=== PATIENT | male | born 1940 | race Caucasian/White ===

== ENCOUNTER 2020-03-12 08:55 | Outpatient (REF) | payer BC, SELFPAY ==
--- NOTE | 2020-03-12 10:13 | MHC.AU.P13 ---
Adult Audiological Evaluation Date of Visit: 03/12/20 Reason for Appointment: Patient has noticed gradually increasing hearing difficulty over the last year. He reports that family members have expressed frustrations over his hearing. Does patient feel they have a hearing loss?: Yes If Yes, Which Ear?: Both Ears Has hearing been tested previously?: No Hearing Handicap Inventory HHIE SCORE: 22 Based on HHIE score, patient has: Mild to moderate perceived hearing handicap Ear History: Recent Ear Drainage: None Reported Recent Ear Pain: None Reported Recent Ear Infections: None Reported History of Ear Wax Buildup: Both Ears Previous Ear Surgery: None Reported Bothersome Tinnitus/Ringing/Noises in Ears: None Reported Ear used on the phone: Left Ear Blocked/Full Sensation in Ear(s): None Reported History of occupational noise exposure?: No History: History: Yes Branch: [employer] Otoscopy: Right Ear: Unremarkable Left Ear: Partially occluded with cerumen Tympanometry: Right Ear: Normal Middle Ear System (Type A) Left Ear: Normal Middle Ear System (Type A) Hearing Evaluation: Transducer(s) Used: Insert Earphones Method: Conventional Audiometry Stimuli Used: Pure Tones Right Ear: Description of Hearing: Mild/moderate sloping to severe sensorineural hearing loss Left Ear: Description of Hearing: Mild/moderate sloping to severe sensorineural hearing loss Speech Recognition Threshold (SRT): Method Used: Recorded Lists Stimuli Used: Spondee Words Right Ear: 45 dBHL Left Ear: 40 dBHL Word Discrimination: Method: Recorded Lists Word Lists Used: NU-6 Right Ear: 80% at 70 dBHL. Re-tested at 75 dBHL, and score improved to 96%. Left Ear: 100% at 75 dBHL Most Comfortable Level (MCL): Right Ear: 70 dBHL Left Ear: 75 dBHL QuickSIN: Tested binaurally, 6 dB SNR loss, which suggests patient's ability to hear in noise is mildly more difficult than the average listener. Recommendations: Audiological re-evaluation in one year. Trial with amplification is recommended. Patient plans to contact his insurance to inquire about hearing aid benefits. He is welcome to contact our clinic to schedule a hearing aid evaluation if he would like to pursue amplification. Diagnosis: Primary Diagnosis: H90.3 Bilateral Sensorineural Hearing Loss Services Performed: Services Performed: Comprehensive Audiological Evaluation (CPT 14944) Tympanometry (CPT 75350) Signature: Provider: Bronson Cr, CCC-A
== END 2020-03-12 08:56 | disposition home or self-care (01) ==
LOC: HO.SH 08:55
PROVIDERS: PCP Family Medicine; Referring Provider Family Medicine; Visit Provider Family Medicine
DX: H90.3 Sensorineural hearing loss, bilateral (principal)
CPT/HCPCS: 92557; 92567

== ENCOUNTER 2020-08-23 14:21 | Emergency (ER) | payer OTHER, SELFPAY ==
[2020-08-23 14:40] VITALS: BP 198/81; PULSE 81; RESP 18; TEMP 36.6; O2SAT 95; BMI 28.8
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
[2020-08-23 16:01] VITALS: BP 153/84; PULSE 69; RESP 18; TEMP 36.4; O2SAT 95
== END 2020-08-23 16:41 | disposition home or self-care (01) ==
PROVIDERS: Emergency Provider Emergency Medicine; PCP Family Medicine
DX: Z04.1 Encounter for examination and observation following transport accident (principal)
CPT/HCPCS: 99282; 99283

== ENCOUNTER 2023-06-30 02:53 | Emergency (ER) | payer BC, SELFPAY ==
[2023-06-30] VITALS (8 sets, daily range): BP systolic 122–170; BP diastolic 66–100; PULSE 66–85; RESP 12–18; TEMP 36.4–36.7; O2SAT 90–98; BMI 32.4
--- NOTE | ~2023-06-30 | CT_ITS ---
EXAMINATION: CT abdomen pelvis w IV con CLINICAL INFORMATION: Reason for Exam bilateral lower quadrant pain COMPARISON: No prior CT available for comparison. TECHNIQUE: Multidetector volumetric imaging was performed from the superior aspect of the liver through the pubic symphysis 85 mL of Omnipaque 350 injected Sagittal and coronal reformatted images were obtained on the technologist's workstation. This CT examination was performed using dose optimization techniques as appropriate, variously including the following: *Automated exposure control *Adjustment of mA and/or kV according to patient size (this includes techniques or standardized protocols for targeted exams where dose is matched to indication/reason for exam; i.e. extremities or head) *Use of iterative reconstruction technique DLP: 648 mGy-cm FINDINGS: LOWER THORAX: Included lung bases are clear. HEPATOBILIARY: No focal hepatic lesions. No biliary ductal dilatation. GALLBLADDER: Gallstone. SPLEEN: Spleen is normal in size. PANCREAS: No focal mass or ductal dilatation. STOMACH AND GASTROINTESTINAL TRACT: Stomach is grossly unremarkable. Dilated the small bowel loops proximally, partial small bowel obstruction, with a transition zone midabdomen Hardy image. There is a segment of small bowel which exhibits somewhat thickened wall, this could be due to acute inflammatory infection or neoplastic process. No CT evidence of appendicitis. There is diverticulosis without evidence of acute diverticulitis. ADRENALS: No adrenal nodules. KIDNEYS/URETERS: Simple 1.8 cm cyst middle pole left kidney Bosniak class I commonly benign no follow-up is necessary. No kidney stone or hydronephrosis. URINARY BLADDER: Partially decompressed. PELVIC VISCERA: Unremarkable PERITONEUM: There is a free fluid in the abdomen, there is no free air. LYMPH NODES: No lymphadenopathy. VASCULAR:Abdominal aorta normal in size, no aneurysm found. BONES, ABDOMINAL WALL AND SOFT TISSUES: Age-appropriate changes of the spine and skeletal system, no destructive osteolytic or osteosclerotic bone lesion found CT/CT abdomen pelvis w IV con IMPRESSION: 1. Partial SMALL BOWEL OBSTRUCTION, dilated proximal small bowel loops, transition zone midabdomen Hardy image. 2. There is a segment of small bowel which exhibits somewhat thickened wall, this could be due to acute inflammatory infection or neoplastic process. 3. Cholelithiasis.
--- NOTE | ~2023-06-30 | XR_ITS ---
EXAMINATION: XR CHEST CLINICAL INFORMATION: Shortness of breath COMPARISON: CT abdomen from 06/30/2023 TECHNIQUE: 2 views of the chest were obtained. FINDINGS: Streaky opacities of the bilateral lung bases suggesting atelectasis, left greater than right. No pneumothorax. Trachea is midline. Cardiac mediastinal silhouette is not enlarged. Aorta demonstrates atherosclerotic calcifications. No large pleural effusion. Osseous structures are intact. Soft tissues are unremarkable. XR/XR chest 2V IMPRESSION: Streaky opacities of the bilateral lung bases suggesting atelectasis, left greater than right.
--- NOTE | 2023-06-30 03:18 | PC.NURSE ---
Pt ca&ox4, no signs of distress. Pt reports lower abdm 6/10 pain with n/v. at bedside. Plan of care ongoing.
--- NOTE | 2023-06-30 04:26 | ECG_ITS ---
Test Reason : ABDOMINAL PAIN Blood Pressure : / mmHG Vent. Rate : 082 BPM Atrial Rate : 082 BPM P-R Int : 210 ms QRS Dur : 114 ms QT Int : 380 ms P-R-T Axes : 026 000 015 degrees QTc Int : 443 ms Sinus rhythm with 1st degree A-V block Low voltage QRS Right bundle branch block Abnormal ECG No previous ECGs available Referred By: Adela Newton Electronically Signed By:Osmani Vaughn
--- NOTE | 2023-06-30 04:33 | ED_ITS ---
HPI - Abdominal Pain General Chief Complaint: Abdominal Pain Stated Complaint: Abdominal Pain , Nausea Time Seen by Provider: 06/30/23 04:32 Source: patient and family Mode of arrival: ambulatory Limitations: no limitations History of Present Illness HPI narrative: Patient comes to the emergency room accompanied by his . Patient complaining of nearly 10 hours of constant bilateral lower quadrant pain, worse on the left side, with worsening episodes. Patient states that around 18:00, after eating supper, patient started having the pain. Patient vomited twice, no diarrhea. Patient denies fever chills, no URI or UTI symptoms. Patient denies previous surgical history is in the abdomen or passing kidney stones. Patient denies history of constipation. Related Data Allergies Allergy/AdvReac Type Severity Reaction Status Date / Time No Known Allergies Allergy Verified 08/23/20 14:43 Review of Systems Review of Systems Constitutional : No Weight loss, No Fever, No Chills, No Night Sweats, No Fatigue, No Malaise ENT/Mouth : No Hearing loss, No Ear Pain, No Nasal Congestion, No Sinus Pain, No Hoarseness, No sore throat, No Rhinorrhea, No Swallowing Difficulty Eyes: No Eye Pain, No Swelling, No Redness, No Foreign Body, No Discharge, No Vision Changes Cardiovascular : No Chest Pain, No SOB, No Dyspnea on Exertion, No Orthopnea, No Edema, No Palpitations Respiratory : No Cough, No Sputum, No Wheezing, No Smoke Exposure, No Dyspnea Gastrointestinal : Complaining of nausea, 2 episodes of vomiting, no diarrhea, no constipation, no blood in the stool, complaining of left lower quadrant pain more than on the right lower quadrant Genitourinary : no irregular bleeding, No Dysuria, No Urinary Frequency, No Hematuria, No Urinary Incontinence, No Urgency, No Flank Pain, No Urinary Flow Changes, No Hesitancy Musculoskeletal : No joint pain, No Myalgias, No Joint Swelling Skin : No Skin Lesions, No rash Neuro : No Weakness, No Numbness, No Paresthesias, No Loss of Consciousness, No Dizziness, No Headache Psych : No Anxiety/Panic, No Depression, No SI/HI/AH/VH, No Social Issues, Heme/Lymph: No Bruising, No Bleeding,No Lymphadenopathy Endocrine : No Polyuria, No Polydipsia, No Temperature Intolerance PMFSH Past Medical History Medical History Pre-diabetes GERD (gastroesophageal reflux disease) Social History Social History Smoked in Last 30 Days: No Use of substances other than those prescribed or required for medical reasons: No Advance Directives: No Advance Directives Information Provided: Yes Physical Exam ED Vital Signs: Vital Signs - 24 hr 06/30/23 03:12 06/30/23 05:17 06/30/23 06:31 Temperature 97.6 F 97.6 F Pulse Rate 85 84 Respiratory Rate 16 12 13 Blood Pressure 154/83 H 135/74 Pulse Oximetry 93 90 L Oxygen Delivery Method Room Air Room Air 06/30/23 07:51 06/30/23 10:07 06/30/23 10:40 Temperature 98.0 F Pulse Rate 74 66 66 Respiratory Rate 12 18 13 Blood Pressure 122/66 143/75 H Pulse Oximetry 92 91 L Oxygen Delivery Method Room Air Room Air BMI result Body Mass Index 32.4 Const Other: Appearance: Alert. Oriented X3. No acute distress. Eyes: Pupils equal, round and reactive to light. ENT: Pharynx normal. Neck: Normal inspection. Neck supple. No lymph nodes noted. No crepitus CVS: Normal heart rate and rhythm. Pulses normal. Normal S1 and S2 Respiratory: No respiratory distress. Breath sounds normal. No Wheezing. No rales Abdomen: Soft, mild tenderness to palpation in the left lower quadrant, no flank pain, no rebound or guarding Skin: Skin warm and dry. Normal skin color. Normal skin turgor. Extremities: No lower extremity edema. No Lacerations. No Rash Neuro: Oriented X 3. No motor deficit. No sensory deficit. Moving all extremities. No slurred speech. CN 2 through 12 grossly intact Psych: calm, cooperative, normal affect Course Course Course Narrative: - patient's labs pending -EKG pending -CT scan pending -patient receiving IV fluids, morphine and Compazine IV Reevaluation(s) Reevaluation #1: 83-year-old male who was signed out to me by the previous provider, patient states feeling much better, requesting water, my examination of his abdomen is benign at this time, patient also endorses that he has passed flatus. Official read of CT abdomen and pelvis is being reported as partial bowel obstruction in mid abdomen with transition point identified on CT scan images. I am consulting with Dr. Abarca, general surgery, regarding conservative discharge versus inpatient obs admission. 0947: Dr. Abarca agrees with conservative plan of strict return precautions as well as follow-up with patient's primary care provider. 0955: Throughout patient's stay he has been noted to have a decline in his oxygenation without obvious respiratory distress or complaints of shortness of breath, we did pursue the testing for viral illnesses and results are negative for influenza/COVID-19. Ambulation study demonstrates that patient's oxygenation decreases to 86% while ambulating with patient reporting dizziness but he attributes it to the morphine that he received. 1131: I reviewed the additional investigations, there are no acute findings on EKG, troponin remains undetectable, BNP is within normal limits, VBG does demonstrate hypercapnia without respiratory acidosis and may explain patient's underlying low oxygen levels that he may have on a chronic basis. A DuoNeb was ordered and patient will be re-evaluated. Age adjusted D-dimer unlikely VTE (threshold-415) 1142: Patient's oxygen saturation is now within reasonable range of his suspected COPD, he appears relaxed, there is no acute respiratory symptoms. He understands all the results and findings and states that he will follow-up with Dr. Beavers this week. Time: 09:43 Medical Decision Making Lab Data 06/30/23 05:52 06/30/23 05:52 Labs: Lab Results 06/30/23 06/30/23 06/30/23 Range/Units 05:52 07:53 08:31 WBC 11.2 H (4.8-10.8) X10*3/uL RBC 4.67 (4.60-5.80) X10*6/uL Hgb 14.3 (14.0-18.0) g/dl Hct 42.1 (42.0-52.0) % MCV 90.1 (80.0-98.0) fL MCH 30.6 (27.0-33.0) pg MCHC 34.0 (31.0-36.0) g/dl RDW 12.4 (11.0-16.0) % Plt Count 237 (160-400) X10*3/uL MPV 9.2 L (9.4-12.4) fL Immature Gran % (Auto) 0.3 (0.0-0.4) % Neut % (Auto) 82.2 H (45-73) % Lymph % (Auto) 12.3 L (20-40) % [place] % (Auto) 4.7 (2-11) % Eos % (Auto) 0.2 (0-4) % Baso % (Auto) 0.3 (0-2) % Lymph # (Auto) 1.4 (1.2-4.9) X10*3/uL [place] # (Auto) 0.5 (0.1-1.2) X10*3/uL Eos # (Auto) 0.0 (0.0-0.4) X10*3/uL Baso # (Auto) 0.0 (0.0-0.2) X10*3/uL Abs Immat Gran (auto) 0.03 (0.00-0.03) X10*3/uL Absolute Neuts (auto) 9.2 H (2.0-8.3) x10*3/uL Absolute Nucleated RBC 0.000 (0.0-0.012) X10*3/uL Nucleated RBC % (auto) 0.0 (0.0-0.2) /100WBC D-Dimer High Sensitivty NG/ML VBG pH (7.32-7.43) VBG pCO2 mmHg VBG pO2 mmHg VBG HCO3 (22-26) mmol/L VBG O2 Saturation % VBG Base Excess mmol/L Sodium 139 (135-145) mmol/L Potassium 3.4 (3.3-5.1) mmol/L Chloride 108 (96-108) mmol/L Carbon Dioxide 22 (22-29) mmol/L Anion Gap 12 (12-20) BUN 13 (9-16) mg/dL Creatinine 0.82 (0.5-1.4) mg/dL Estim Creat Clear Calc 72.0 Estimated GFR > 60 Random Glucose 118 H (60-115) mg/dL Calcium 7.9 L (8.4-10.2) mg/dL Total Bilirubin 0.8 (0.0-1.0) mg/dL Direct Bilirubin 0.2 (0.0-0.5) mg/dL AST 17 (5-37) U/L ALT 20 (0-40) U/L Alkaline Phosphatase 28 L (39-117) U/L Troponin I High Sens < 2.7 (<3.5-35.0) ng/L B-Natriuretic Peptide (<100) pg/mL Total Protein 6.3 L (6.5-8.0) g/dL Albumin 3.5 (3.5-5.0) g/dL Lipase 35 (8-78) U/L Urine Color Yellow Urine Appearance Clear Urine pH 6.0 (5.0-9.0) Ur Specific [place] 1.020 (1.005-1.025) Urine Protein Trace (Neg-Trace) mg/dL Urine Glucose (UA) Negative (Negative) mg/dL Urine Ketones 15 (Negative) mg/dL Urine Blood Negative (Negative) Urine Nitrite Negative (Negative) Ur Leukocyte Esterase Negative (Negative) COVID-19 (QUIRINO) Negative (Negative) COVID-19 Clin Com See Note Influenza Type A (EDUARDO) Negative (Negative) Influenza Type B (EDUARDO) Negative (Negative) Influenza A & B Note See Note 06/30/23 06/30/23 Range/Units 10:20 10:22 WBC (4.8-10.8) X10*3/uL RBC (4.60-5.80) X10*6/uL Hgb (14.0-18.0) g/dl Hct (42.0-52.0) % MCV (80.0-98.0) fL MCH (27.0-33.0) pg MCHC (31.0-36.0) g/dl RDW (11.0-16.0) % Plt Count (160-400) X10*3/uL MPV (9.4-12.4) fL Immature Gran % (Auto) (0.0-0.4) % Neut % (Auto) (45-73) % Lymph % (Auto) (20-40) % [place] % (Auto) (2-11) % Eos % (Auto) (0-4) % Baso % (Auto) (0-2) % Lymph # (Auto) (1.2-4.9) X10*3/uL [place] # (Auto) (0.1-1.2) X10*3/uL Eos # (Auto) (0.0-0.4) X10*3/uL Baso # (Auto) (0.0-0.2) X10*3/uL Abs Immat Gran (auto) (0.00-0.03) X10*3/uL Absolute Neuts (auto) (2.0-8.3) x10*3/uL Absolute Nucleated RBC (0.0-0.012) X10*3/uL Nucleated RBC % (auto) (0.0-0.2) /100WBC D-Dimer High Sensitivty 368 NG/ML VBG pH 7.35 (7.32-7.43) VBG pCO2 54 mmHg VBG pO2 37 mmHg VBG HCO3 30 H (22-26) mmol/L VBG O2 Saturation 57.0 % VBG Base Excess 3.2 mmol/L Sodium (135-145) mmol/L Potassium (3.3-5.1) mmol/L Chloride (96-108) mmol/L Carbon Dioxide (22-29) mmol/L Anion Gap (12-20) BUN (9-16) mg/dL Creatinine (0.5-1.4) mg/dL Estim Creat Clear Calc Estimated GFR Random Glucose (60-115) mg/dL Calcium (8.4-10.2) mg/dL Total Bilirubin (0.0-1.0) mg/dL Direct Bilirubin (0.0-0.5) mg/dL AST (5-37) U/L ALT (0-40) U/L Alkaline Phosphatase (39-117) U/L Troponin I High Sens < 2.7 (<3.5-35.0) ng/L B-Natriuretic Peptide 35 (<100) pg/mL Total Protein (6.5-8.0) g/dL Albumin (3.5-5.0) g/dL Lipase (8-78) U/L Urine Color Urine Appearance Urine pH (5.0-9.0) Ur Specific [place] (1.005-1.025) Urine Protein (Neg-Trace) mg/dL Urine Glucose (UA) (Negative) mg/dL Urine Ketones (Negative) mg/dL Urine Blood (Negative) Urine Nitrite (Negative) Ur Leukocyte Esterase (Negative) COVID-19 (QUIRINO) (Negative) COVID-19 Clin Com Influenza Type A (EDUARDO) (Negative) Influenza Type B (EDUARDO) (Negative) Influenza A & B Note Independent Interpretation I performed an independent interpretation of an: EKG Interpretation: Normal sinus rhythm with right bundle branch block, HR-65, no STEMI, no EKG for comparison and QTC is within normal limits. Medications Administered Discontinued Medications Generic Name Dose Route Start Last Admin Trade Name Freq PRN Reason Stop Dose Admin Albuterol/Ipratropium 3 ml 06/30/23 10:35 06/30/23 10:40 Albuterol/Iprat 2.5/0.5mg 3 Ml Ampul.Neb INHALE 06/30/23 10:36 3 ml ONCE ONE Administration Sodium Chloride 1,000 mls @ 999 mls/hr 06/30/23 04:32 06/30/23 07:55 Ns IVCONT 06/30/23 05:32 Infused .Q1H1M ONE Infusion Iohexol 85 ml 06/30/23 07:23 06/30/23 07:25 Iohexol 350 Mg/Ml 100 Ml Infus..Btl IV 06/30/23 07:24 85 ml ONCE ONE Administration Morphine Sulfate 4 mg 06/30/23 04:32 06/30/23 05:17 Morphine Sulfate 4 Mg/Ml Cartridge IVPUSH 06/30/23 04:33 4 mg ONCE ONE Administration Protocol Ondansetron HCl 4 mg 06/30/23 05:36 06/30/23 05:43 Ondansetron Hcl 4 Mg/2 Ml Vial IVPUSH 06/30/23 05:37 4 mg ONCE ONE Administration Prochlorperazine Edisylate 5 mg 06/30/23 04:32 06/30/23 05:16 Prochlorperazine Edisylate 10 Mg/2 Ml Vial IVPUSH 06/30/23 04:33 5 mg ONCE ONE Administration Discharge Plan Discharge Clinical Impression: COPD (chronic obstructive pulmonary disease), Partial small bowel obstruction Patient Disposition: Home, Self-Care Instructions: COPD (Chronic Obstructive Pulmonary Disease) (ED), Bowel Obstruction (ED) Additional Instructions: Follow-up with your primary care doctor in the next 1-2 days. Return for any worsening symptoms. Referrals: Jalen Beavers MD [Primary Care Provider] -
[2023-06-30] MEDS: Prochlorperazine Edisylate 10 MG/2 ML VIAL 5 MG IVPUSH (05:16)
[2023-06-30] MEDS: 0.9 % Sodium Chloride 1,000 ML 999 ML IVCONT (05:16)
[2023-06-30] MEDS: Morphine Sulfate 4 MG/ML CARTRIDGE IVPUSH (05:17)
--- NOTE | 2023-06-30 05:30 | PC.NURSE ---
Pt medicated per [facility] Plan of care ongoing.
[2023-06-30] MEDS: ondansetron HCL 4 MG/2 ML VIAL IVPUSH (05:43)
[2023-06-30 05:58] LABS: Basophils Percent Auto 0.3 % (0-2); Eosinophils Percent Auto 0.2 % (0-4); Hematocrit 42.1 % (42.0-52.0); Hemoglobin 14.3 g/dl (14.0-18.0); Imm Gran Abs Auto 0.03 X10*3/uL (0.00-0.03); Imm Gran Pct Auto 0.3 % (0.0-0.4); Lymphocytes Absolute Auto 1.4 X10*3/uL (1.2-4.9); Lymphocytes Percent Auto 12.3 % (20-40); MANUAL DIFF FLAG NO; Mean Corpuscular Hemoglobin 30.6 pg (27.0-33.0); Mean Corpuscular Volume 90.1 fL (80.0-98.0); Mean Platelet Volume 9.2 fL (9.4-12.4); Monocytes Absolute Auto 0.5 X10*3/uL (0.1-1.2); Monocytes Percent Auto 4.7 % (2-11); Neutrophils Absolute Auto 9.2 x10*3/uL (2.0-8.3); Neutrophils Percent Auto 82.2 % (45-73); Platelet Count 237 X10*3/uL (160-400); Red Blood Count 4.67 X10*6/uL (4.60-5.80); Red Cell Distribution Width 12.4 % (11.0-16.0); White Blood Count 11.2 X10*3/uL (4.8-10.8)
[2023-06-30 06:15] LABS: Alanine Aminotransferase 20 U/L (0-40); Albumin Level 3.5 g/dL (3.5-5.0); Alkaline Phosphatase 28 U/L (39-117); Anion Gap 12 (12-20); Aspartate Amino Transferase 17 U/L (5-37); Bilirubin Direct 0.2 mg/dL (0.0-0.5); Bilirubin Total 0.8 mg/dL (0.0-1.0); Blood Urea Nitrogen 13 mg/dL (9-16); Calcium 7.9 mg/dL (8.4-10.2); Carbon Dioxide 22 mmol/L (22-29); Chloride 108 mmol/L (96-108); Estimated Glomerular Filt Rate > 60; Glucose Random 118 mg/dL (60-115); Lipase 35 U/L (8-78); Potassium 3.4 mmol/L (3.3-5.1); Sodium 139 mmol/L (135-145); Total Protein 6.3 g/dL (6.5-8.0)
[2023-06-30 06:23] LABS: Troponin-I High Sensitivity < 2.7 ng/L (<3.5-35.0)
--- NOTE | 2023-06-30 06:56 | PC.NURSE ---
Pt 02 dropped to 88 on room air. Pt placed on 2L of 02 nc, up to 94. Plan of care ongoing.
[2023-06-30] MEDS: iohexoL 350 MG/ML 100 ML INFUS..BTL 85 ML IV (07:25)
--- NOTE | 2023-06-30 07:56 | PC.NURSE ---
attempted to remove nasal cannula - patient's oxygen down to 88% - placed back on 2L nasal cannula. offering no complaints, awaiting ct scan results
[2023-06-30 08:04] LABS: Appearance Urine Clear; Color Urine Yellow; Glucose Urine UA Negative (Negative); Leukocyte Esterase Urine Negative (Negative); Nitrite Urine Negative (Negative); Urine Blood Negative (Negative); Urine Ketones 15 mg/dL (Negative); Urine Protein Trace mg/dL (Neg-Trace)
[2023-06-30 08:53] LABS: COVID-19 Test Negative (Negative); IDNOW Serial# 08D9AD1C; IDNOW Serial# 152EDE1D; Influenza A Negative (Negative); Influenza B2 Negative (Negative)
--- NOTE | 2023-06-30 09:59 | ECG_ITS ---
Test Reason : DIZZINESS Blood Pressure : / mmHG Vent. Rate : 065 BPM Atrial Rate : 065 BPM P-R Int : 214 ms QRS Dur : 114 ms QT Int : 418 ms P-R-T Axes : 029 -09 -02 degrees QTc Int : 434 ms Sinus rhythm with 1st degree A-V block Low voltage QRS Right bundle branch block Abnormal ECG When compared with ECG of 30-JUN-2023 06:09, No significant change was found Referred By: Kaya Hollins Electronically Signed By:Osmani Vaughn
--- NOTE | 2023-06-30 10:03 | PC.NURSE ---
ambulated patient w/ pulse ox - 84-87% on room air
[2023-06-30 10:30] LABS: VBG Base Excess 3.2 mmol/L; VBG HCO3 30 mmol/L (22-26); VBG pCO2 54 mmHg; VBG pH 7.35 (7.32-7.43); VBG pO2 37 mmHg
[2023-06-30 10:30] LABS: Venous Blood Gas Refer to POC result
[2023-06-30] MEDS: Albuterol/Iprat 2.5/0.5MG 3 ML AMPUL.NEB INHALE (10:40)
[2023-06-30 10:51] LABS: Troponin-I High Sensitivity < 2.7 ng/L (<3.5-35.0)
[2023-06-30 10:52] LABS: D Dimer High Sensitivity 368 NG/ML
[2023-06-30 10:55] LABS: B Type Natriuretic Peptide 35 pg/mL (<100)
--- NOTE | 2023-06-30 11:02 | PC.NURSE ---
respiratory at bedside w/ breathing treatment. patient placed on room air, remains 88-93% at this time. no obvious signs/symptoms of distress noted at this time. patient taken for xray
== END 2023-06-30 12:02 | disposition home or self-care (01) ==
PROVIDERS: Emergency Medicine; Emergency Provider Student in an Organized Health Care Education/Training Program; PCP Family Medicine
DX: K56.600 Partial intestinal obstruction, unspecified as to cause (principal); J44.9 Chronic obstructive pulmonary disease, unspecified; Z11.52 Encounter for screening for COVID-19
CPT/HCPCS: 36415; 71046; 74177; 80053; 81003; 82248; 82803; 83690; 83880; 84484; 85025; 85379; 87502; 87635; 93005; 94640; 96361; 96374; 96375; 99285; J0737; J2270; J2405; Q9967

== ENCOUNTER → 2023-06-30 04:26 | Outpatient (BNV) | payer BC, SELFPAY | PROVIDERS: Emergency Provider Student in an Organized Health Care Education/Training Program; PCP Family Medicine; Visit Provider Internal Medicine Cardiovascular Disease | DX: I44.0 Atrioventricular block, first degree (principal) | CPT/HCPCS: 93010 ==

== ENCOUNTER 2023-07-01 04:08 | Inpatient (IN) | payer MEDICARE, BC, SELFPAY ==
[2023-07-01] VITALS (13 sets, daily range): BP systolic 135–172; BP diastolic 70–97; PULSE 77–95; RESP 16–18; TEMP 36–37.1; O2SAT 93–96; BMI 27.4; BMI 31.0
--- NOTE | ~2023-07-01 | CT_ITS ---
EXAMINATION: CT ABDOMEN AND PELVIS WITH CONTRAST CLINICAL INFORMATION: Concern for worsening known partial small bowel obstruction COMPARISON: 06/30/2023 TECHNIQUE: Multidetector volumetric images were obtained from the superior aspect of the liver through the pubic symphysis following administration 85 mL of Omnipaque 350 intravenous contrast. Sagittal and coronal reformatted images were obtained on the technologist's workstation. Oral contrast: No This CT examination was performed using dose optimization techniques as appropriate, variously including the following: *Automated exposure control *Adjustment of mA and/or kV according to patient size (this includes techniques or standardized protocols for targeted exams where dose is matched to indication/reason for exam; i.e. extremities or head) *Use of iterative reconstruction technique DLP: 630 mGy-cm FINDINGS: LUNG BASES: Suboptimally assessed due to motion artifact. Subsegmental atelectasis bilaterally. Coronary artery calcifications are present. LIVER, GALLBLADDER, AND BILIARY TREE: The liver is normal in size, shape, and attenuation. No focal hepatic lesion or biliary ductal dilatation is present. Hyperdensity in the gallbladder is suspicious for vicarious excretion of previously administered IV contrast. PANCREAS: Unremarkable. SPLEEN: Unremarkable. ADRENAL GLANDS: Unremarkable. KIDNEYS AND URETERS: Bilateral nephrograms are symmetric. No hydronephrosis or obstructing calculus identified. Small bilateral hypoattenuating renal foci favor cysts; no follow-up recommended. BLADDER: Distended with excreted contrast material. GASTROINTESTINAL TRACT: There are multiple dilated fluid and gas-filled loops of small bowel in the abdomen up to approximately 4.2 cm in diameter. Overall degree of distention appears slightly increased compared to prior. Transition from dilated to collapsed small bowel appears to occur just the left of midline on coronal image 28, with a thick-walled small bowel segment beyond this site. Redemonstrated mesenteric stranding and small amount of free fluid. Colonic diverticulosis is noted. Appendix appears collapsed. No free air is seen. ABDOMINAL WALL: No significant hernia is appreciated. LYMPH NODES: Normal. VASCULAR: There is atherosclerotic calcification along the aorta and iliac arteries. PELVIC VISCERA: Unremarkable. OSSEOUS STRUCTURES: Scattered degenerative changes in the spine. CT/CT abdomen pelvis w IV con IMPRESSION: Multiple dilated loops of small bowel in the abdomen, consistent with small bowel obstruction. Overall degree of distention appears slightly increased compared to 06/30/2023. Transition point appears to occur just the left of midline, with a thick-walled small bowel segment beyond this site which may be indicative of enteritis and stricturing. Redemonstrated mesenteric stranding and small amount of free fluid.
--- NOTE | 2023-07-01 04:28 | ECG_ITS ---
Test Reason : ABD PAIN Blood Pressure : / mmHG Vent. Rate : 088 BPM Atrial Rate : 088 BPM P-R Int : 212 ms QRS Dur : 114 ms QT Int : 356 ms P-R-T Axes : 018 -03 -03 degrees QTc Int : 430 ms Sinus rhythm with 1st degree A-V block Low voltage QRS Right bundle branch block Abnormal ECG When compared with ECG of 30-JUN-2023 10:05, No significant change was found Referred By: Gloria Hankins Electronically Signed By:Osmani Vaughn
--- NOTE | 2023-07-01 04:29 | ED_ITS ---
HPI - Abdominal Pain General Chief Complaint: Abdominal Pain Stated Complaint: ABDOMINAL PAIN Time Seen by Provider: 07/01/23 04:22 Source: patient, EMS and old records reviewed Mode of arrival: EMS Limitations: no limitations History of Present Illness HPI narrative: 83 yo male with PMH of COPD, GERD, no prior abdominal surgeries seen yesterday for abdominal pain no BM x [address] scan showing PSBO with transition point in midabdomen with thickened segment of small bowel infectious and neoplastic process not ruled out. He was sent home with conservative therapy but presents again with pain, lack of BM, vomiting all day and worsening distention. He thinks he might have passed some flatus but not sure. MD elicited complaint: abdominal pain Pertinent past history: constipation Onset (ago): day(s) (2) Pain Consistency: constant Location: diffuse Severity: moderate Quality: aching and fullness Radiation: none Migration to: epigastric Exacerbating factors: eating and movement Relieving factors: nothing Context: other Associated symptoms: nausea, vomiting and constipation Related Data Allergies Allergy/AdvReac Type Severity Reaction Status Date / Time No Known Allergies Allergy Verified 08/23/20 14:43 Review of Systems Review of Systems Constitutional : No Weight loss, No Fever, No Chills ENT/Mouth : No sore throat, No Rhinorrhea Eyes: No Swelling, No Redness Cardiovascular : No Chest Pain, No SOB, NoEdema Respiratory : No Cough, No Sputum, No Wheezing Gastrointestinal : Positive Nausea, Positive Vomiting, no Diarrhea, positive abdominal Pain, No Hematochezia, No Melena, pos constipation Genitourinary : No Dysuria, No Urinary Frequency, No Hematuria, No Urgency Musculoskeletal : No joint pain, No Myalgias, No Joint Swelling Skin : No Skin Lesions, No rash Neuro : No Weakness, No Numbness, No Dizziness, No Headache All other systems reviewed and are negative. [facility] Past Medical History Attestation statement: The following information was validated with the patient. Source: old records reviewed Medical History Pre-diabetes GERD (gastroesophageal reflux disease) Social History Social History Alcohol intake: current Alcohol intake frequency: a few times a week Alcohol type: beer and hard liquor Smoked in Last 30 Days: No Use of substances other than those prescribed or required for medical reasons: No Advance Directives: No Advance Directives Information Provided: No Physical Exam ED Vital Signs: Vital Signs - 24 hr 07/01/23 04:21 Temperature 98.3 F Pulse Rate 92 Respiratory Rate 16 Blood Pressure 150/86 H Pulse Oximetry 93 Oxygen Delivery Method Room Air BMI result Body Mass Index 27.4 Appearance: Alert. Oriented X3. No acute distress. Eyes: Pupils equal, round and reactive to light. ENT: Pharynx mildly dry MM Neck: Normal inspection. Neck supple. CVS: Normal heart rate and rhythm. Pulses normal. Respiratory: No respiratory distress. Breath sounds normal. Abdomen: distended, diffusely mildly tender but no peritoneal signs Skin: Skin warm and dry. Normal skin color. Normal skin turgor. Extremities: No lower extremity edema. Neuro: Oriented X 3. No motor deficit. No sensory deficit. Course Course Course Narrative: no further n/v if he has any episodes here with place NG tube Medical Decision Making Medical Decision Making MDM Narrative: 83 yo male with PMH of COPD, GERD, here with worsening obstructive symptoms at this time labs, repeat CT scan ordered, IV morphine, fluids and zofran. Pending CT scan anticipate admission for further management and work up including area of thickwalled segment. Differential Diagnosis Differential Diagnoses: The differential diagnosis associated with the presentation includes SBO, cancer given small bowel area thickening noted on yesterday's CT scan Admission/Observation Consideration of admission/observation: Escalation of care including admission/observation considered will admit given worsening imaging discussed abnormal area in small bowel with patient Consult Healthcare Provider Management of the patient was discussed with: [facility] Associate Professor (surgery will admit) Lab Data [facility] Lab Attestation statement: I reviewed the patient's lab results. 07/01/23 04:49 07/01/23 04:49 Labs: Lab Results 07/01/23 Range/Units 04:49 WBC 9.2 (4.8-10.8) X10*3/uL RBC 5.18 (4.60-5.80) X10*6/uL Hgb 15.9 (14.0-18.0) g/dl Hct 46.4 (42.0-52.0) % MCV 89.6 (80.0-98.0) fL MCH 30.7 (27.0-33.0) pg MCHC 34.3 (31.0-36.0) g/dl RDW 12.5 (11.0-16.0) % Plt Count 259 (160-400) X10*3/uL MPV 9.1 L (9.4-12.4) fL Immature Gran % (Auto) 0.2 (0.0-0.4) % Neut % (Auto) 78.9 H (45-73) % Lymph % (Auto) 14.5 L (20-40) % [place] % (Auto) 5.7 (2-11) % Eos % (Auto) 0.4 (0-4) % Baso % (Auto) 0.3 (0-2) % Lymph # (Auto) 1.3 (1.2-4.9) X10*3/uL [place] # (Auto) 0.5 (0.1-1.2) X10*3/uL Eos # (Auto) 0.0 (0.0-0.4) X10*3/uL Baso # (Auto) 0.0 (0.0-0.2) X10*3/uL Abs Immat Gran (auto) 0.02 (0.00-0.03) X10*3/uL Absolute Neuts (auto) 7.3 (2.0-8.3) x10*3/uL Absolute Nucleated RBC 0.000 (0.0-0.012) X10*3/uL Nucleated RBC % (auto) 0.0 (0.0-0.2) /100WBC Sodium 135 (135-145) mmol/L Potassium 3.9 (3.3-5.1) mmol/L Chloride 100 (96-108) mmol/L Carbon Dioxide 25 (22-29) mmol/L Anion Gap 14 (12-20) BUN 13 (9-16) mg/dL Creatinine 0.95 (0.5-1.4) mg/dL Estim Creat Clear Calc 57.0 Estimated GFR > 60 Random Glucose 134 H (60-115) mg/dL Calcium 9.4 D (8.4-10.2) mg/dL Magnesium 2.0 (1.6-2.6) mg/dL Total Bilirubin 0.9 (0.0-1.0) mg/dL Direct Bilirubin 0.4 (0.0-0.5) mg/dL AST 27 (5-37) U/L ALT 22 (0-40) U/L Alkaline Phosphatase 30 L (39-117) U/L Total Protein 7.4 (6.5-8.0) g/dL Albumin 4.1 (3.5-5.0) g/dL Lipase 34 (8-78) U/L Independent Interpretation I performed an independent interpretation of an: EKG and CT Scan (worsening SBO) Interpretation: Rate: 88 Rhythm: NSR 1st degree AVB [place]: left Normal P waves. 1st degree aVB RBBB ST T wave : inverted t waves V1-V3, no JOLENE qTC: 430 prior studies: no change from priors The study has been interpreted contemporaneously by me. . Radiology Impression Discussion of test interpretation with radiology: I have reviewed the radiologist's reading. Independent Historian Clinical information obtained from an independent historian. History obtained from or confirmed by: EMS External Record Review External record reviewed: Inpatient record Medications Administered Generic Name Dose Route Start Last Admin Trade Name Freq PRN Reason Stop Dose Admin Sodium Chloride 1,000 mls @ 100 mls/hr 07/01/23 04:30 07/01/23 06:13 Ns IVCONT 100 mls/hr .Q10H MIKE Administration Discontinued Medications Generic Name Dose Route Start Last Admin Trade Name Freq PRN Reason Stop Dose Admin Iohexol 85 ml 07/01/23 05:44 07/01/23 05:44 Iohexol 350 Mg/Ml 100 Ml Infus..Btl IV 07/01/23 05:45 85 ml ONCE ONE Administration Morphine Sulfate 2 mg 07/01/23 04:28 07/01/23 06:14 Morphine Sulfate 2 Mg/Ml Cartridge IVPUSH 07/01/23 04:29 2 mg ONCE ONE Administration Protocol Ondansetron HCl 4 mg 07/01/23 04:28 07/01/23 06:13 Ondansetron Hcl 4 Mg/2 Ml Vial IVPUSH 07/01/23 04:29 4 mg ONCE ONE Administration Critical Care Time Critical Care Time Critical Care Time: Yes Total Critical Care Time: 40 Attestation: IV morphine improved pain, review of records, consult, admission I attest to this time spent taking care of the patient Discharge Plan Discharge Clinical Impression: Small bowel obstruction Abdominal pain Qualifiers: Abdominal location: generalized Qualified Code(s): R10.84 - Generalized abdominal pain Patient Disposition: Admitted As Inpatient
[2023-07-01 04:53] LABS: MANUAL DIFF FLAG NO
[2023-07-01 04:54] LABS: Basophils Percent Auto 0.3 % (0-2); Eosinophils Percent Auto 0.4 % (0-4); Hematocrit 46.4 % (42.0-52.0); Hemoglobin 15.9 g/dl (14.0-18.0); Imm Gran Abs Auto 0.02 X10*3/uL (0.00-0.03); Imm Gran Pct Auto 0.2 % (0.0-0.4); Lymphocytes Absolute Auto 1.3 X10*3/uL (1.2-4.9); Lymphocytes Percent Auto 14.5 % (20-40); Mean Corpuscular HGB Conc 34.3 g/dl (31.0-36.0); Mean Corpuscular Hemoglobin 30.7 pg (27.0-33.0); Mean Corpuscular Volume 89.6 fL (80.0-98.0); Mean Platelet Volume 9.1 fL (9.4-12.4); Monocytes Absolute Auto 0.5 X10*3/uL (0.1-1.2); Monocytes Percent Auto 5.7 % (2-11); Neutrophils Absolute Auto 7.3 x10*3/uL (2.0-8.3); Neutrophils Percent Auto 78.9 % (45-73); Platelet Count 259 X10*3/uL (160-400); Red Blood Count 5.18 X10*6/uL (4.60-5.80); Red Cell Distribution Width 12.5 % (11.0-16.0); White Blood Count 9.2 X10*3/uL (4.8-10.8)
[2023-07-01 05:20] LABS: Alanine Aminotransferase 22 U/L (0-40); Albumin Level 4.1 g/dL (3.5-5.0); Alkaline Phosphatase 30 U/L (39-117); Anion Gap 14 (12-20); Aspartate Amino Transferase 27 U/L (5-37); Bilirubin Direct 0.4 mg/dL (0.0-0.5); Bilirubin Total 0.9 mg/dL (0.0-1.0); Blood Urea Nitrogen 13 mg/dL (9-16); Calcium 9.4 mg/dL (8.4-10.2); Carbon Dioxide 25 mmol/L (22-29); Chloride 100 mmol/L (96-108); Estimated Glomerular Filt Rate > 60; Glucose Random 134 mg/dL (60-115); Potassium 3.9 mmol/L (3.3-5.1); Sodium 135 mmol/L (135-145); Total Protein 7.4 g/dL (6.5-8.0)
[2023-07-01 05:42] LABS: Lipase 34 U/L (8-78)
[2023-07-01] MEDS: iohexoL 350 MG/ML 100 ML INFUS..BTL 85 ML IV (05:44)
[2023-07-01] MEDS: 0.9 % Sodium Chloride 1,000 ML 100 ML IVCONT ×3 (06:13→17:11)
[2023-07-01] MEDS: ondansetron HCL 4 MG/2 ML VIAL IVPUSH (06:13)
[2023-07-01] MEDS: Morphine Sulfate 2 MG/ML CARTRIDGE IVPUSH (06:14)
--- NOTE | 2023-07-01 07:54 | PC.NURSE ---
patient is awake and alert x3, IV fluids running 100ml/hr normal saline on pump. patient states he has 10/10 pain in his abd, reached out to attending physician. patient VSS, skin dry and intact. patient ambulated with steady gait tot he bathroom. call edwards within reach
[2023-07-01] MEDS: Morphine Sulfate 4 MG/ML CARTRIDGE 3 MG IVPUSH (08:21)
--- NOTE | 2023-07-01 10:55 | P.CONIM_ITS ---
History of Present Illness Data of Consult Service Date: 07/01/23 Primary Care Provider: Jalen Beavers MD [facility] Reason for consult: periop 83M PMH savage's esophagus, preDM (A1c 5.9), presented with abdominal pain. pain ongoing for about 2 days, associated with constipation, bloating, n/v. in eD found to have small bowel obstruction. patient denies previous obstructions or surgeries. deneis chest pain, sob, fever, chills. reports being fairly active, able to tolerate 4 mets without sob/chest pain. Review of Systems 2 Review of Systems: Yes all other systems are reviewed and are negative [facility] Medical History Pre-diabetes GERD (gastroesophageal reflux disease) Social History Alcohol intake: current Alcohol intake frequency: a few times a week Alcohol type: beer and hard liquor Smoked in Last 30 Days: No Use of substances other than those prescribed or required for medical reasons: No Advance Directives: No Advance Directives Information Provided: No Meds Allergies Allergy/AdvReac Type Severity Reaction Status Date / Time No Known Allergies Allergy Verified 08/23/20 14:43 Active Medications: Current Medications Enoxaparin Sodium (Enoxaparin Sodium 40 Mg/0.4 Ml Syringe) 40 mg SUBCUT Q24H [facility] Last Admin: 07/01/23 10:20 Dose: Not Given Sodium Chloride (Ns) 1,000 mls @ 100 mls/hr IVCONT .Q10H [facility] Last Admin: 07/01/23 06:13 Dose: 100 mls/hr Sodium Chloride (Ns) 1,000 mls @ 100 mls/hr IVCONT .Q10H [facility] Last Admin: 07/01/23 07:46 Dose: 100 mls/hr Morphine Sulfate (Morphine Sulfate 4 Mg/Ml Cartridge) 3 mg IVPUSH Q3H PRN; Protocol PRN Reason: Pain, Severe (Pain Scale 7-10) Last Admin: 07/01/23 08:21 Dose: 3 mg Ondansetron HCl (Ondansetron Hcl 4 Mg/2 Ml Vial) 4 mg IVPUSH Q8H PRN PRN Reason: Nausea and Vomiting Sodium Chloride (0.9 % Sodium Chloride Flush 3 Ml Syringe) 3 ml IVFLUSH QSHIFT [facility] Last Admin: 07/01/23 08:03 Dose: Not Given Home Medications Medication Instructions Recorded Confirmed Last Taken Type pantoprazole 40 mg tablet,delayed 40 mg PO BID 07/01/23 07/01/23 Unknown History release Physical Exam 2 Vital Signs and Narrative: Vital Signs: Last Vital Signs Temp 98.1 F 07/01/23 07:31 Pulse 81 07/01/23 07:31 Resp 18 07/01/23 07:31 BP 159/78 H 07/01/23 07:31 Pulse Ox 94 07/01/23 07:31 O2 Del Method Room Air 07/01/23 07:31 BMI result Body Mass Index 27.4 General: AO X 3, no acute distress Resp: CTA bilateral, no accessory muscles used CVS: S1,S2,RRR Neuro: motor grossly intact, alert Psych: appropriate affect, appropriate insight Results Labs 07/01/23 04:49 07/01/23 04:49 Labs: Laboratory Results - last 24 hr 07/01/23 04:49 MCV 89.6 MCH 30.7 MCHC 34.3 RDW 12.5 Plt Count 259 MPV 9.1 L Immature Gran % (Auto) 0.2 Neut % (Auto) 78.9 H Lymph % (Auto) 14.5 L [place] % (Auto) 5.7 Eos % (Auto) 0.4 Baso % (Auto) 0.3 Lymph # (Auto) 1.3 [place] # (Auto) 0.5 Eos # (Auto) 0.0 Baso # (Auto) 0.0 Abs Immat Gran (auto) 0.02 Absolute Neuts (auto) 7.3 Absolute Nucleated RBC 0.000 Nucleated RBC % (auto) 0.0 Anion Gap 14 Estim Creat Clear Calc 57.0 Estimated GFR > 60 Random Glucose 134 H Calcium 9.4 D Magnesium 2.0 Total Bilirubin 0.9 Direct Bilirubin 0.4 AST 27 ALT 22 Alkaline Phosphatase 30 L Total Protein 7.4 Albumin 4.1 Lipase 34 Imaging Radiologist's Impressions: Impressions Abdomen/Pelvis CT 07/01/23 05:53 IMPRESSION: Multiple dilated loops of small bowel in the abdomen, consistent with small bowel obstruction. Overall degree of distention appears slightly increased compared to 06/30/2023. Transition point appears to occur just the left of midline, with a thick-walled small bowel segment beyond this site which may be indicative of enteritis and stricturing. Redemonstrated mesenteric stranding and small amount of free fluid. Assessment and Plan (1) Small bowel obstruction: Status: Acute Plan 83M PMH savage's esophagus, preDM (A1c 5.9), presented with SBO SBO patient low - mod risk for surgery, benefits outweight risks, would proceed as planned savage's esophagus continue ppi preDM diet controlled, outpatient follow up thank you for the consultion, will follow
--- NOTE | 2023-07-01 11:55 | PHA.MEDREC ---
Pharmacy Consult ? Medication Reconciliation Pharmacy has completed the medication reconciliation.
--- NOTE | 2023-07-01 14:12 | PM.HPGS ---
History of Present Illness History of Present Illness Date of Service: 07/01/23 Chief complaint: Abdominal Pain Narrative: Keon Hernandez is a 83 year old male who has been noting the last few days abdominal bloating and distension and then abdominal pain. He came in to the ER yesterday and was noted to have partial small bowel obstruction by CT and then started to feel better and passing gas. He was told to fu with General Surgery and dc home. He then went on to feel worse and abdomen bloated and colicky pain and came back in and repeat CT scan shows worsening distension and a thickened segment of small bowel. Review of Systems Review of Systems: Yes all other systems are reviewed and are negative [facility] Past Medical History Medical History Pre-diabetes GERD (gastroesophageal reflux disease) Social History Social History Household Members: Spouse Housing: House Do you presently have visiting nurse or other home services: No Alcohol intake: current Alcohol intake frequency: a few times a week Alcohol type: beer and hard liquor Patient Tobacco Use Status: Never used Tobacco Meds Allergies Allergy/AdvReac Type Severity Reaction Status Date / Time No Known Allergies Allergy Verified 08/23/20 14:43 Active Medications: Current Medications Enoxaparin Sodium (Enoxaparin Sodium 40 Mg/0.4 Ml Syringe) 40 mg SUBCUT Q24H [facility] Last Admin: 07/01/23 10:20 Dose: Not Given Sodium Chloride (Ns) 1,000 mls @ 100 mls/hr IVCONT .Q10H [facility] Last Admin: 07/01/23 07:46 Dose: 100 mls/hr Morphine Sulfate (Morphine Sulfate 4 Mg/Ml Cartridge) 3 mg IVPUSH Q3H PRN; Protocol PRN Reason: Pain, Severe (Pain Scale 7-10) Last Admin: 07/01/23 08:21 Dose: 3 mg Ondansetron HCl (Ondansetron Hcl 4 Mg/2 Ml Vial) 4 mg IVPUSH Q8H PRN PRN Reason: Nausea and Vomiting Sodium Chloride (0.9 % Sodium Chloride Flush 3 Ml Syringe) 3 ml IVFLUSH QSHIFT [facility] Last Admin: 07/01/23 13:45 Dose: Not Given Home Medications Medication Instructions Recorded Confirmed Last Taken Type pantoprazole 40 mg tablet,delayed 40 mg PO BID 07/01/23 07/01/23 Unknown History release Physical Exam Vital Signs: Vital Signs: Last Vital Signs Temp 98 F 07/01/23 13:34 Pulse 82 07/01/23 13:34 Resp 16 07/01/23 13:34 BP 139/87 07/01/23 13:34 Pulse Ox 93 07/01/23 13:34 O2 Del Method Room Air 07/01/23 13:34 BMI result Body Mass Index 31.0 Const: General: cooperative, healthy appearing and acute distress mild Orientation/consciousness: patient oriented x3 HEENT: Head: Yes normal to inspection Eyes: General: appearance normal, both eyes and all related structures Resp: Effort & Inspection: normal respiratory effort and able to speak in complete sentences Auscultation: clear to auscultation bilaterally Cardio: Rate: regular rate Rhythm: regular rhythm GI: Other: abdomen is distended but soft, hypo bowel sounds no masses, small umbilical hernia with fat Skin: Other: nonicteric Neuro: General: patient oriented x3 Cranial nerves: Yes CN's II-XII intact bilaterally Psych: Appearance: grossly normal Mental Status: mental status grossly normal Speech and movement: Normal speech and movement present Affect: normal affect Attitude: cooperative Thought process: Normal thought process present Thought content: Normal thought content present Insight: Good insight present (Psych) Judgement: Good judgement present (Psych) Results Results Labs: Short CBC 07/01/23 Range/Units 04:49 WBC 9.2 (4.8-10.8) X10*3/uL Hgb 15.9 (14.0-18.0) g/dl Hct 46.4 (42.0-52.0) % Plt Count 259 (160-400) X10*3/uL BMP 07/01/23 04:49 Sodium 135 Potassium 3.9 Chloride 100 Carbon Dioxide 25 BUN 13 Creatinine 0.95 Calcium 9.4 D Liver Function 07/01/23 Range/Units 04:49 Total Bilirubin 0.9 (0.0-1.0) mg/dL Direct Bilirubin 0.4 (0.0-0.5) mg/dL AST 27 (5-37) U/L ALT 22 (0-40) U/L Alkaline Phosphatase 30 L (39-117) U/L Albumin 4.1 (3.5-5.0) g/dL Abdomen CT scan report/results: report reviewed and image reviewed CT scan - pelvis: report reviewed and image reviewed Additional studies: [address] [address] [address] Scan Report Signed Patient: Keon Hernandez MR#: [id number] : 1940 Acct:[id number] Age/Sex: 83 / M ADM Date: 07/01/23 Loc: HO.ED Attending Dr: Ordering Physician: Gloria Hankins DO Date of Service: 07/01/23 Procedure(s): CT abdomen pelvis w IV con Accession Number(s): [id number] cc: Gloria Hankins DO; Jalen Beavers MD~ EXAMINATION: CT ABDOMEN AND PELVIS WITH CONTRAST CLINICAL INFORMATION: Concern for worsening known partial small bowel obstruction COMPARISON: 06/30/2023 TECHNIQUE: Multidetector volumetric images were obtained from the superior aspect of the liver through the pubic symphysis following administration 85 mL of Omnipaque 350 intravenous contrast. Sagittal and coronal reformatted images were obtained on the technologist's workstation. Oral contrast: No This CT examination was performed using dose optimization techniques as appropriate, variously including the following: *Automated exposure control *Adjustment of mA and/or kV according to patient size (this includes techniques or standardized protocols for targeted exams where dose is matched to indication/reason for exam; i.e. extremities or head) *Use of iterative reconstruction technique DLP: 630 mGy-cm FINDINGS: LUNG BASES: Suboptimally assessed due to motion artifact. Subsegmental atelectasis bilaterally. Coronary artery calcifications are present. LIVER, GALLBLADDER, AND BILIARY TREE: The liver is normal in size, shape, and attenuation. No focal hepatic lesion or biliary ductal dilatation is present. Hyperdensity in the gallbladder is suspicious for vicarious excretion of previously administered IV contrast. PANCREAS: Unremarkable. SPLEEN: Unremarkable. ADRENAL GLANDS: Unremarkable. KIDNEYS AND URETERS: Bilateral nephrograms are symmetric. No hydronephrosis or obstructing calculus identified. Small bilateral hypoattenuating renal foci favor cysts; no follow-up recommended. BLADDER: Distended with excreted contrast material. GASTROINTESTINAL TRACT: There are multiple dilated fluid and gas-filled loops of small bowel in the abdomen up to approximately 4.2 cm in diameter. Overall degree of distention appears slightly increased compared to prior. Transition from dilated to collapsed small bowel appears to occur just the left of midline on coronal image 28, with a thick-walled small bowel segment beyond this site. Redemonstrated mesenteric stranding and small amount of free fluid. Colonic diverticulosis is noted. Appendix appears collapsed. No free air is seen. ABDOMINAL WALL: No significant hernia is appreciated. LYMPH NODES: Normal. VASCULAR: There is atherosclerotic calcification along the aorta and iliac arteries. PELVIC VISCERA: Unremarkable. OSSEOUS STRUCTURES: Scattered degenerative changes in the spine. CT/CT abdomen pelvis w IV con IMPRESSION: Multiple dilated loops of small bowel in the abdomen, consistent with small bowel obstruction. Overall degree of distention appears slightly increased compared to 06/30/2023. Transition point appears to occur just the left of midline, with a thick-walled small bowel segment beyond this site which may be indicative of enteritis and stricturing. Redemonstrated mesenteric stranding and small amount of free fluid. Dictated By: Shahram Huff MD Signed By: <Electronically signed by Shahram Huff MD in OV> 07/01/23 0617 Assessment and Plan (1) Small bowel obstruction: Status: Acute Plan Pt is an 82 year old male with smallbowel obstruction, ? virgin abdomen, with CT scan showing an area of thickened small bowel at transition point. not improving - plan to undergo exploratory laparotmoy and possible small bowel resection - risks and benefits discussed with the pt including but not limited to bleeding infection bowel injury anastomotic leak and despite that he wishes to proceed. Quality Stroke Does the patient have a stroke diagnosis?: No VTE Prior VTE?: No VTE Risk Level:: Surgical - moderate VTE Device Contraindication: N/A - Device Ordered VTE Drug Contraindication: N/A - Med Ordered Procedures Date of Service Date of Service: 07/01/23
--- NOTE | 2023-07-01 19:55 | P.OP_ITS ---
Operative Note Operative Note Date of Service: 07/01/23 Narrative: Preop diagnosis-- small-bowel obstruction Postop diagnosis-- small-bowel obstruction Procedure--exploratory laparotomy with detorsion omental constricting band and partial omentectomy Surgeon-- Rima Anesthesia--general endotracheal tube anesthesia History--the patient is an 83-year-old male who has never had any abdominal surgery who came into the emergency room yesterday complaining of couple of days abdominal pain distention nausea and vomiting and a CT scan showed changes consistent with a partial small-bowel obstruction. While in the ER he felt better start passing gas. His abdomen was improved and wanted to go home. Plan was to follow up with us as an outpatient in the office. Patient returned to the emergency room today complaining of increased abdominal pain distention etcetera. Repeat CT scan revealed more distended small bowel with a transition zone. As a result patient is coming to the operating room to undergo exploration and possible small-bowel resection. --Finding-- Patient had a section of omentum which came across laterally and wrapped around a segment of the small bowel loops causing a constricting area on the bowel as well as the mesentery. There was a segment of small bowel with petechial changes and low hemorrhagic but looking viable. Proximal to this the bowel was moderately distended and distal to this was normal. The omental tissue was removed from wrapping around the small bowel and the success omentum was also excised with the LigaSure Procedure-- Patient was brought to the operative room and under anesthesia guidance was intubated. He had compression stockings placed before induction and he received preoperative antibiotics. His abdomen was prepped and draped in standard surgical fashion and a Christensen catheter had been placed. Patient had a little umbilical hernia and a midline incision was created a little above and below the umbilicus and the peritoneal cavity was entered using the cautery. Immediately distended small bowel loops came into view. We were trying to follow this and find the normal small bowel loops to locate the transition zone but there was a fat a lot of fat that was present here and by following the fat it was noted t hat there was a segment of the small bowel that had this omental fat that came laterally and swung around and wrapped around it causing constriction with the mesentery and the small intestine. By untwisting this and repositioning this fat which came off of the transverse colon area we were able to free up the small bowel. The lumen was palpated and no masses were noted. We then ran the entire small bowel to the ligament of Treitz and then Bactrim the ligament of Treitz to the ileocecal valve area. Once we were able to confirm office as being normal and then running again from the ileocecal valve area to the area concern no masses were noted and the small bowel although will erythematous and with petechial changes appear to be viable and functioning. On entering a small serosal tear was created in 1 of the distended loops of bowel and this was repaired with 2 stitches of 3-0 silk in an interrupted fashion. An OG tube had been placed in the case and this helped to decompress systemic as I am of the small bowel. The omentum coming off the stomach and the transverse colon area was then examined in 2 areas where there was some redundancy was trimmed back with the LigaSure. This omentum fat tissue looked fine. There was less weight and length of fat now to sneak back into the lower part of the pelvis the small bowel was also repositioned into the peritoneal cavity and looked fine. The midline was now closed using 0 Maxon suture inferiorly and superiorly and tied the closer to the inferior length of the wound. Patient had an umbilical hernia and the hernia contents of fat had been reduced and trimmed back and the defect closed in the closing up the midline area. The umbilical stalk was imbricated to the fascia and then michelle were used to approximate the skin edges. At the end of the case all sponge instrument needle counts were correct. Estimated blood loss was 5 cc. Specimen sent was nothing. Urine output was about 300 cc at about 400 cc of bilious fluid was removed from the OG before that was removed. At the end of the case the Christensen catheter was left in place to monitor strict ins and outs. Patient left the OR stable to recovery room
[2023-07-01] MEDS: Acetaminophen 1,000 MG/100 ML PIGGYBACK 400 MG IV (20:02)
[2023-07-02] VITALS (13 sets, daily range): BP systolic 117–158; BP diastolic 59–75; PULSE 68–90; RESP 14–18; TEMP 36.1–36.7; O2SAT 93–96
[2023-07-02] MEDS: Acetaminophen 1,000 MG/100 ML PIGGYBACK 400 MG IV ×4 (02:20→19:17)
[2023-07-02] MEDS: 0.9 % Sodium Chloride 1,000 ML 100 ML IVCONT ×2 (04:22→14:18)
[2023-07-02 05:57] LABS: Hematocrit 42.2 % (42.0-52.0); Hemoglobin 13.9 g/dl (14.0-18.0); Mean Corpuscular HGB Conc 32.9 g/dl (31.0-36.0); Mean Corpuscular Hemoglobin 30.4 pg (27.0-33.0); Mean Corpuscular Volume 92.3 fL (80.0-98.0); Mean Platelet Volume 9.5 fL (9.4-12.4); Platelet Count 246 X10*3/uL (160-400); Red Blood Count 4.57 X10*6/uL (4.60-5.80); Red Cell Distribution Width 12.5 % (11.0-16.0)
[2023-07-02] MEDS: Pantoprazole Sodium 40 MG/10 ML VIAL IVPUSH (05:57)
[2023-07-02 06:11] LABS: Anion Gap 12 (12-20); Blood Urea Nitrogen 11 mg/dL (9-16); Calcium 8.3 mg/dL (8.4-10.2); Carbon Dioxide 24 mmol/L (22-29); Chloride 108 mmol/L (96-108); Creatinine Clr Calc Pharmacy 63.6; Estimated Glomerular Filt Rate > 60; Glucose Fasting 119 mg/dL (60-99); Potassium 4.4 mmol/L (3.3-5.1); Sodium 140 mmol/L (135-145)
--- NOTE | 2023-07-02 07:55 | PM.PNGS ---
Subjective Subjective Date of Service: 07/02/23 Interval history: underwent laparotomy, exc of omentum causing SBO say he is ok this AM denies flatus sore on incision Physical Exam Vital Signs: Vital Signs: Last Vital Signs Temp 97.7 F 07/02/23 07:23 Pulse 78 07/02/23 07:23 Resp 14 07/02/23 07:23 BP 147/72 H 07/02/23 07:23 Pulse Ox 94 07/02/23 07:23 O2 Del Method Nasal Cannula 07/02/23 07:23 O2 Flow Rate 2 07/02/23 07:23 BMI result Body Mass Index 31.0 Const: General: comfortable and no acute distress Resp: Effort & Inspection: normal respiratory effort Cardio: Rate: regular rate GI: Other: dressings dry Palpation (GI): Soft to palpation, not firm and no guarding Objective Data Active Medications Enoxaparin Sodium (Enoxaparin Sodium 40 Mg/0.4 Ml Syringe) 40 mg SUBCUT Q24H [facility] Last Admin: 07/01/23 10:20 Dose: Not Given Documented By: MARCO Non-Admin Reason: Patient Refused Sodium Chloride (Ns) 1,000 mls @ 100 mls/hr IVCONT .Q10H [facility] Last Admin: 07/02/23 04:22 Dose: 100 mls/hr Documented By: ABDULLAHI Acetaminophen (Ofirmev) 1,000 mg in 100 mls @ 400 mls/hr IV Q6H [facility] Last Infusion: 07/02/23 02:35 Dose: Infused Documented By: ABDULLAHI Morphine Sulfate (Morphine Sulfate 4 Mg/Ml Cartridge) 3 mg IVPUSH Q3H PRN; Protocol PRN Reason: Pain, Severe (Pain Scale 7-10) Last Admin: 07/01/23 08:21 Dose: 3 mg Documented By: MARCO Ondansetron HCl (Ondansetron Hcl 4 Mg/2 Ml Vial) 4 mg IVPUSH Q8H PRN PRN Reason: Nausea and Vomiting Pantoprazole Sodium (Pantoprazole Sodium 40 Mg/10 Ml Vial) 40 mg IVPUSH DAILY@0630 [facility] Last Admin: 07/02/23 05:57 Dose: 40 mg Documented By: ABDULLAHI Sodium Chloride (0.9 % Sodium Chloride Flush 3 Ml Syringe) 3 ml IVFLUSH QSHIFT [facility] Last Admin: 07/01/23 23:47 Dose: Not Given Documented By: ABDULLAHI Non-Admin Reason: IV Running Labs 07/02/23 05:27 07/02/23 05:27 Labs: Laboratory Results - last 24 hr 07/02/23 05:27 MCV 92.3 MCH 30.4 MCHC 32.9 RDW 12.5 Plt Count 246 MPV 9.5 Absolute Nucleated RBC 0.000 Nucleated RBC % (auto) 0.0 Anion Gap 12 Estim Creat Clear Calc 63.6 Estimated GFR > 60 Fasting Glucose 119 H Calcium 8.3 L D Procedures Date of Service Date of Service: 07/02/23 Progress Note: A&P Assessment and plan (1) Small bowel obstruction: Status: Acute Assessment and Plan: S/P laparotomy, excision of constricting omentum doing well some pain abd soft ok to try clear liquids await full retunr of GI function ambulate incentive spirometry labs ok Time Spent With Patient Time: Total time managing care of this patient today ____ minutes. Quality Stroke Does the patient have a stroke diagnosis?: No VTE Prior VTE?: No VTE Risk Level:: Surgical - moderate VTE Device Contraindication: N/A - Device Ordered VTE Drug Contraindication: N/A - Med Ordered
[2023-07-02] MEDS: Enoxaparin Sodium 40 MG/0.4 ML SYRINGE SUBCUT (08:56)
--- NOTE | 2023-07-02 09:45 | MHC.CM.PN ---
CM MET WITH PT AT BEDSIDE. PT LIVES WITH SPOUSE, INDEPENDENT AT BASELINE. +DRIVES +HCP AT HOME, WILL HAVE [facility] BRING COPY IN. PCP DR. PEDERSEN DP: HOME, NO SERVICES ANTICIPATED. [facility] WILL TRANSPORT HOME. CM WILL CONTINUE TO FOLLOW FOR ANY CHANGE IN DC PLAN/NEEDS.
--- NOTE | 2023-07-02 10:56 | P.PNIM_ITS ---
Subjective Subjective Date of Service: 07/02/23 Interval History: some bloating, but feeling alright Physical Exam 2 Vital Signs: Vital Signs: Last Vital Signs Temp 97.7 F 07/02/23 07:23 Pulse 78 07/02/23 07:23 Resp 14 07/02/23 07:23 BP 147/72 H 07/02/23 07:23 Pulse Ox 94 07/02/23 07:23 O2 Del Method Nasal Cannula 07/02/23 07:23 O2 Flow Rate 2 07/02/23 07:23 BMI result Body Mass Index 31.0 Const: General: comfortable and no acute distress Resp: Effort & Inspection: normal respiratory effort Cardio: Rate: regular rate GI: Other: dressings dry Palpation (GI): Soft to palpation, not firm and no guarding Objective Data Active Medications Enoxaparin Sodium (Enoxaparin Sodium 40 Mg/0.4 Ml Syringe) 40 mg SUBCUT Q24H [facility] Last Admin: 07/02/23 08:56 Dose: 40 mg Documented By: TRUNG Sodium Chloride (Ns) 1,000 mls @ 100 mls/hr IVCONT .Q10H [facility] Last Admin: 07/02/23 04:22 Dose: 100 mls/hr Documented By: ABDULLAHI Acetaminophen (Ofirmev) 1,000 mg in 100 mls @ 400 mls/hr IV Q6H [facility] Last Infusion: 07/02/23 09:29 Dose: Infused Documented By: TRUNG Morphine Sulfate (Morphine Sulfate 4 Mg/Ml Cartridge) 4 mg IVPUSH Q3H PRN; Protocol PRN Reason: Pain, Severe (Pain Scale 7-10) Ondansetron HCl (Ondansetron Hcl 4 Mg/2 Ml Vial) 4 mg IVPUSH Q8H PRN PRN Reason: Nausea and Vomiting Pantoprazole Sodium (Pantoprazole Sodium 40 Mg/10 Ml Vial) 40 mg IVPUSH DAILY@0630 [facility] Last Admin: 07/02/23 05:57 Dose: 40 mg Documented By: ABDULLAHI Sodium Chloride (0.9 % Sodium Chloride Flush 3 Ml Syringe) 3 ml IVFLUSH QSHIFT [facility] Last Admin: 07/02/23 09:01 Dose: Not Given Documented By: TRUNG Non-Admin Reason: IV Running Labs 07/02/23 05:27 07/02/23 05:27 Labs: Laboratory Results - last 24 hr 07/02/23 05:27 MCV 92.3 MCH 30.4 MCHC 32.9 RDW 12.5 Plt Count 246 MPV 9.5 Absolute Nucleated RBC 0.000 Nucleated RBC % (auto) 0.0 Anion Gap 12 Estim Creat Clear Calc 63.6 Estimated GFR > 60 Fasting Glucose 119 H Calcium 8.3 L D Assessment and Plan (1) Small bowel obstruction: Status: Acute Plan 83M PMH savage's esophagus, preDM (A1c 5.9), presented with SBO SBO POD 1 management per primary team savage's esophagus continue ppi preDM diet controlled, outpatient follow up appears medically stable, will sign off for now, please recall if needed Quality Stroke Does the patient have a stroke diagnosis?: No VTE Prior VTE?: No VTE Risk Level:: Surgical - moderate VTE Device Contraindication: N/A - Device Ordered VTE Drug Contraindication: N/A - Med Ordered
--- NOTE | 2023-07-02 11:40 | PC.NURSE ---
Patient with laird present from surgery. OK to remove per surgical PA. Laird removed at 0930. DTV @ 2345. Urinal within reach.
[2023-07-02] MEDS: Morphine Sulfate 4 MG/ML CARTRIDGE IVPUSH (13:23)
--- NOTE | 2023-07-02 14:44 | HO.POSTANES ---
Post Anesthesia Evaluation Post Anesthesia Evaluation Date of Service: 07/02/23 Vital Signs: Vital Signs Temp Pulse Resp BP Pulse Ox O2 Del Method O2 Flow Rate 07/02/23 11:29 97.8 F 79 14 145/75 H 96 Room Air 07/02/23 07:23 97.7 F 78 14 147/72 H 94 Nasal Cannula 2 07/02/23 07:10 97.7 F 78 14 147/72 H 94 Nasal Cannula 2 07/02/23 04:00 18 07/02/23 03:43 96.9 F 78 18 139/65 93 Room Air 07/02/23 02:50 18 Anesthesia: General Endotracheal-GETA Mental Status: Awake Pain Control: Satisfactory (pain on incision) Nausea/Vomiting: Mild Hydration: Adequate Anesthesia-Related Issues: No Anes. Related Issues
[2023-07-02 18:37] LABS: Glucose, Whole Blood 135 mg/dL (60-115)
[2023-07-02] MEDS: ondansetron HCL 4 MG/2 ML VIAL IVPUSH (19:17)
[2023-07-03] VITALS (10 sets, daily range): BP systolic 136–171; BP diastolic 63–90; PULSE 55–100; RESP 14–20; TEMP 36.1–36.9; O2SAT 92–96
[2023-07-03] MEDS: 0.9 % Sodium Chloride 1,000 ML 100 ML IVCONT (00:20)
[2023-07-03] MEDS: Acetaminophen 1,000 MG/100 ML PIGGYBACK 400 MG IV ×4 (01:57→20:50)
[2023-07-03] MEDS: Pantoprazole Sodium 40 MG/10 ML VIAL IVPUSH (05:34)
[2023-07-03] MEDS: ondansetron HCL 4 MG/2 ML VIAL IVPUSH (08:13)
--- NOTE | 2023-07-03 08:33 | P.PNGS_ITS ---
Subjective Subjective Date of Service: 07/03/23 Interval history: Says this morning Feels bloated Denies significant flatus Physical Exam 2 Vital Signs: Vital Signs: Last Vital Signs Temp 97.7 F 07/03/23 07:07 Pulse 100 07/03/23 07:07 Resp 16 07/03/23 07:57 BP 145/90 H 07/03/23 07:07 Pulse Ox 95 07/03/23 07:07 O2 Del Method Room Air 07/03/23 07:07 O2 Flow Rate 2 07/02/23 07:23 BMI result Body Mass Index 31.0 Const: Other: Sitting on recliner General: no acute distress Resp: Effort & Inspection: normal respiratory effort Cardio: Rate: regular rate GI: Other: Distended but soft, incision clean and dry Palpation (GI): not firm and no guarding Objective Data Active Medications Enoxaparin Sodium (Enoxaparin Sodium 40 Mg/0.4 Ml Syringe) 40 mg SUBCUT Q24H [facility] Last Admin: 07/02/23 08:56 Dose: 40 mg Documented By: TRUNG Acetaminophen (Ofirmev) 1,000 mg in 100 mls @ 400 mls/hr IV Q6H [facility] Last Admin: 07/03/23 08:13 Dose: 400 mls/hr Documented By: TRUNG Morphine Sulfate (Morphine Sulfate 4 Mg/Ml Cartridge) 4 mg IVPUSH Q3H PRN; Protocol PRN Reason: Pain, Severe (Pain Scale 7-10) Last Admin: 07/02/23 13:23 Dose: 4 mg Documented By: TRUNG Ondansetron HCl (Ondansetron Hcl 4 Mg/2 Ml Vial) 4 mg IVPUSH Q8H PRN PRN Reason: Nausea and Vomiting Last Admin: 07/03/23 08:13 Dose: 4 mg Documented By: TRUNG Pantoprazole Sodium (Pantoprazole Sodium 40 Mg/10 Ml Vial) 40 mg IVPUSH DAILY@0630 [facility] Last Admin: 07/03/23 05:34 Dose: 40 mg Documented By: ABDULLAHI Sodium Chloride (0.9 % Sodium Chloride Flush 3 Ml Syringe) 3 ml IVFLUSH QSHIFT [facility] Last Admin: 07/03/23 08:18 Dose: Not Given Documented By: HO.RAEJ Non-Admin Reason: IV Running Labs 04/01/24 05:27 07/02/23 05:27 Labs: Laboratory Results - last 24 hr 07/02/23 18:31 POC Glucose 135 H Procedures Date of Service Date of Service: 07/03/23 Progress Note: A&P Assessment and plan (1) Small bowel obstruction: Status: Acute Assessment and Plan: Status post laparotomy, resection of omentum Will revert to NPO because of nausea Encourage ambulation Abdomen otherwise soft Incentive spirometry Pain management Time Spent With Patient Time: Total time managing care of this patient today ____ minutes. Quality Stroke Does the patient have a stroke diagnosis?: No VTE Prior VTE?: No VTE Risk Level:: Surgical - moderate VTE Device Contraindication: N/A - Device Ordered VTE Drug Contraindication: N/A - Med Ordered
[2023-07-03] MEDS: Enoxaparin Sodium 40 MG/0.4 ML SYRINGE SUBCUT (09:28)
[2023-07-03] MEDS: Lactated Ringers 1,000 ML 100 ML IVCONT ×2 (13:59→23:54)
--- NOTE | 2023-07-03 20:52 | PC.NURSE ---
Patient reports passing flatus twice this evening small amt.
[2023-07-04] VITALS (7 sets, daily range): BP systolic 115–165; BP diastolic 59–74; PULSE 66–86; RESP 14–19; TEMP 36.1–37.2; O2SAT 92–96
[2023-07-04] MEDS: Acetaminophen 1,000 MG/100 ML PIGGYBACK 400 MG IV ×2 (01:58→07:59)
[2023-07-04] MEDS: ondansetron HCL 4 MG/2 ML VIAL IVPUSH (05:39)
[2023-07-04] MEDS: Pantoprazole Sodium 40 MG/10 ML VIAL IVPUSH (05:39)
[2023-07-04 07:27] LABS: Anion Gap 16 (12-20); Blood Urea Nitrogen 13 mg/dL (9-16); Calcium 8.4 mg/dL (8.4-10.2); Carbon Dioxide 23 mmol/L (22-29); Chloride 107 mmol/L (96-108); Creatinine Clr Calc Pharmacy 66.5; Estimated Glomerular Filt Rate > 60; Glucose Fasting 81 mg/dL (60-99); Sodium 142 mmol/L (135-145)
--- NOTE | 2023-07-04 08:17 | P.PNGS_ITS ---
Subjective Subjective Date of Service: 07/04/23 <Jenny Salcedo PA-C - Last Filed: 07/04/23 08:19> 07/04/23 <Omid Henry MD - Last Filed: 07/04/23 08:23> Interval history: Feels a little better this morning. Has begun to pass flatus. Nausea improved but still present. Pain well controlled, only on IV tylenol. <Jenny Salcedo PA-C - Last Filed: 07/04/23 08:19> Physical Exam 2 Vital Signs: Vital Signs: Last Vital Signs Temp 97 F 07/04/23 07:42 Pulse 66 07/04/23 07:42 Resp 14 07/04/23 07:42 BP 115/59 L 07/04/23 07:42 Pulse Ox 93 07/04/23 07:42 O2 Del Method Room Air 07/04/23 07:42 O2 Flow Rate 2 07/02/23 07:23 BMI result Body Mass Index 31.0 <Jenny Salcedo PA-C - Last Filed: 07/04/23 08:19> Const: General: comfortable, no acute distress and alert <Jenny Salcedo PA-C - Last Filed: 07/04/23 08:19> Orientation/consciousness: patient oriented x3 <TRA Dexter Last Filed: 07/04/23 08:19> Resp: Effort & Inspection: normal respiratory effort <TRA Dexter Last Filed: 07/04/23 08:19> GI: Inspection: Yes distended (slightly decreased this am, softly) and Yes incision (clean) <Jenny Salcedo PA-C - Last Filed: 07/04/23 08:19> Palpation (GI): Soft to palpation, Tenderness to palpation present (GI) (mild incisional) and no guarding <TRA Dexter Last Filed: 07/04/23 08:19> Skin: General skin exam: no rashes or lesions noted <TRA Dexter Last Filed: 07/04/23 08:19> Neuro: General: patient oriented x3 and moves all extremities <Jenny Salcedo PA-C - Last Filed: 07/04/23 08:19> Objective Data Active Medications Enoxaparin Sodium (Enoxaparin Sodium 40 Mg/0.4 Ml Syringe) 40 mg SUBCUT Q24H [facility] Last Admin: 07/03/23 09:28 Dose: 40 mg Documented By: TRUNG Acetaminophen (Ofirmev) 1,000 mg in 100 mls @ 400 mls/hr IV Q6H [facility] Last Admin: 07/04/23 07:59 Dose: 400 mls/hr Documented By: CHICO Lactated Ringer's (Lr) 1,000 mls @ 100 mls/hr IVCONT .Q10H [facility] Last Admin: 07/03/23 23:54 Dose: 100 mls/hr Documented By: SHALINI Promethazine HCl 12.5 mg/ (Sodium Chloride) 50.5 mls @ 202 mls/hr IV Q6H PRN PRN Reason: Nausea Morphine Sulfate (Morphine Sulfate 4 Mg/Ml Cartridge) 4 mg IVPUSH Q3H PRN; Protocol PRN Reason: Pain, Severe (Pain Scale 7-10) Last Admin: 07/02/23 13:23 Dose: 4 mg Documented By: TRUNG Ondansetron HCl (Ondansetron Hcl 4 Mg/2 Ml Vial) 4 mg IVPUSH Q8H PRN PRN Reason: Nausea and Vomiting Last Admin: 07/04/23 05:39 Dose: 4 mg Documented By: SHALINI Pantoprazole Sodium (Pantoprazole Sodium 40 Mg/10 Ml Vial) 40 mg IVPUSH DAILY@0630 [facility] Last Admin: 07/04/23 05:39 Dose: 40 mg Documented By: SHALINI Sodium Chloride (0.9 % Sodium Chloride Flush 3 Ml Syringe) 3 ml IVFLUSH QSHIFT [facility] Last Admin: 07/04/23 08:03 Dose: Not Given Documented By: CHICO Non-Admin Reason: IV Running <Jenny Salcedo PA-C - Last Filed: 07/04/23 08:19> Labs CBC & Chem 7: 07/02/23 05:27 07/04/23 05:47 <Jenny Salcedo PA-C - Last Filed: 07/04/23 08:19> Labs: Laboratory Results - last 24 hr 04/03/24 05:47 Hold Purple Top SEE NOTE Anion Gap 16 Estim Creat Clear Calc 66.5 Estimated GFR > 60 Fasting Glucose 81 Calcium 8.4 <Jenny Salcedo PA-C - Last Filed: 07/04/23 08:19> Procedures Date of Service Date of Service: 07/04/23 <Jenny Salcedo PA-C - Last Filed: 07/04/23 08:19> 07/04/23 <Omid Henry MD - Last Filed: 07/04/23 08:23> Progress Note: A&P Assessment and plan (1) Small bowel obstruction: Status: Acute <Jenny Salcedo PA-C - Last Filed: 07/04/23 08:19> Assessment and Plan: Patient states that he feels better today Still distended but soft Nausea better Starting to pass flatus Encouraged more ambulation Seen and examined independently <Omid Henry MD - Last Filed: 07/04/23 08:23> Assessment and Plan: Slowly improving. Await more flatus, then will advance to clears, hopefully later today. Patient comfortable with plan. Cont OOB/ambulation. < Jenny Salcedo PA-C - Last Filed: 07/04/23 08:19> Time Spent With Patient Time: Total time managing care of this patient today ____ minutes. <Jenny Salcedo PA-C - Last Filed: 07/04/23 08:19> Quality Stroke Does the patient have a stroke diagnosis?: No <Jenny Salcedo PA-C - Last Filed: 07/04/23 08:19> VTE Prior VTE?: No <Jenny Salcedo PA-C - Last Filed: 07/04/23 08:19> VTE Risk Level:: Surgical - moderate <Jenny Salcedo PA-C - Last Filed: 07/04/23 08:19> VTE Device Contraindication: N/A - Device Ordered <Jenny Salcedo PA-C - Last Filed: 07/04/23 08:19> VTE Drug Contraindication: N/A - Med Ordered <Jenny Salcedo PA-C - Last Filed: 07/04/23 08:19>
[2023-07-04] MEDS: Enoxaparin Sodium 40 MG/0.4 ML SYRINGE SUBCUT (09:51)
[2023-07-04] MEDS: Lactated Ringers 1,000 ML 100 ML IVCONT ×2 (10:30→19:50)
--- NOTE | 2023-07-04 13:43 | MHC.CM.PN ---
EMR REVIEWED. PT CONTINUES TO INDORSE MILD NAUSEA. UP AMBULATING IN CORRIDOR. CM WILL CONTINUE TO FOLLOW FOR ANY CHANGE IN DC PLAN/NEEDS
[2023-07-04] MEDS: Acetaminophen 325 MG TABLET 650 MG PO (14:42)
--- NOTE | 2023-07-04 15:07 | PM.EVENT ---
Event Note Date of Service: 07/04/23 Event Note: Seen on afternoon rounds Passing large amounts of flatus Says nausea has improved significantly Abdomen soft and still distended He has been ambulating Feels well overall Will retry clear liquids for tonight Time Spent With Patient Time: Total time managing care of this patient today ____ minutes.
[2023-07-04] MEDS: 0.9 % Sodium Chloride Flush 3 ML SYRINGE IVFLUSH (19:50)
[2023-07-05 04:00] VITALS: BP 161/78; PULSE 81; RESP 18; TEMP 36.1; O2SAT 93
[2023-07-05] MEDS: Lactated Ringers 1,000 ML 100 ML IVCONT ×2 (05:10→14:50)
[2023-07-05] MEDS: Pantoprazole Sodium 40 MG/10 ML VIAL IVPUSH (06:16)
[2023-07-05 07:26] VITALS: BP 162/80; PULSE 86; RESP 18; TEMP 36.4; O2SAT 93
[2023-07-05] MEDS: ondansetron HCL 4 MG/2 ML VIAL IVPUSH (08:29)
[2023-07-05] MEDS: Acetaminophen 325 MG TABLET 650 MG PO ×2 (08:29→18:08)
--- NOTE | 2023-07-05 08:41 | PM.PNGS ---
Subjective Subjective Date of Service: 07/09/23 Interval history: Continues to pass flatus well Says he has had some watery stools as well this morning However, feels nauseous Physical Exam Vital Signs: Vital Signs: Last Vital Signs Temp 97.6 F 07/05/23 07:26 Pulse 86 07/05/23 07:26 Resp 18 07/05/23 07:26 BP 162/80 H 07/05/23 07:26 Pulse Ox 93 07/05/23 07:26 O2 Del Method Room Air 07/05/23 07:26 O2 Flow Rate 2 07/02/23 07:23 BMI result Body Mass Index 31.0 Const: General: no acute distress Resp: Effort & Inspection: normal respiratory effort Cardio: Rate: regular rate GI: Other: Seems distended but soft, no guarding, no rebound, incision clean and dry Objective Data Active Medications Acetaminophen (Acetaminophen 325 Mg Tablet) 650 mg PO Q6H PRN PRN Reason: fever, pain Last Admin: 07/05/23 08:29 Dose: 650 mg Documented By: TENA Enoxaparin Sodium (Enoxaparin Sodium 40 Mg/0.4 Ml Syringe) 40 mg SUBCUT Q24H [facility] Last Admin: 07/04/23 09:51 Dose: 40 mg Documented By: LINA Lactated Ringer's (Lr) 1,000 mls @ 100 mls/hr IVCONT .Q10H [facility] Last Admin: 07/05/23 05:10 Dose: 100 mls/hr Documented By: DESMOND Promethazine HCl 12.5 mg/ (Sodium Chloride) 50.5 mls @ 202 mls/hr IV Q6H PRN PRN Reason: Nausea Last Infusion: 07/04/23 23:00 Dose: Infused Documented By: DESMOND Morphine Sulfate (Morphine Sulfate 4 Mg/Ml Cartridge) 4 mg IVPUSH Q3H PRN; Protocol PRN Reason: Pain, Severe (Pain Scale 7-10) Last Admin: 07/02/23 13:23 Dose: 4 mg Documented By: TRUNG Ondansetron HCl (Ondansetron Hcl 4 Mg/2 Ml Vial) 4 mg IVPUSH Q8H PRN PRN Reason: Nausea and Vomiting Last Admin: 07/05/23 08:29 Dose: 4 mg Documented By: TENA Pantoprazole Sodium (Pantoprazole Sodium 40 Mg/10 Ml Vial) 40 mg IVPUSH DAILY@0630 [facility] Last Admin: 07/05/23 06:16 Dose: 40 mg Documented By: DESMOND Sodium Chloride (0.9 % Sodium Chloride Flush 3 Ml Syringe) 3 ml IVFLUSH QSHIFT [facility] Last Admin: 07/05/23 07:23 Dose: Not Given Documented By: TENA Non-Admin Reason: IV Running Labs 07/02/23 05:27 07/04/23 05:47 Procedures Date of Service Date of Service: 07/09/23 Progress Note: A&P Assessment and plan (1) Small bowel obstruction: Status: Resolved Assessment and Plan: Status post laparotomy, excision of omental band Has flatus and watery stools However, feels nauseous He wants to try clear liquids Abdomen seems distended but otherwise soft and very benign Continue ambulation Time Spent With Patient Time: Total time managing care of this patient today ____ minutes. Quality Stroke Does the patient have a stroke diagnosis?: No VTE Prior VTE?: No VTE Risk Level:: Surgical - moderate VTE Device Contraindication: N/A - Device Ordered VTE Drug Contraindication: N/A - Med Ordered
[2023-07-05] MEDS: Enoxaparin Sodium 40 MG/0.4 ML SYRINGE SUBCUT (10:50)
[2023-07-05 12:00] VITALS: BP 127/70; PULSE 82; RESP 18; TEMP 36.2; O2SAT 96
--- NOTE | 2023-07-05 14:57 | PM.EVENT ---
Event Note Date of Service: 07/05/23 Event Note: seen on afternoon rounds feels better nausea resolved passing good flatus abd mildly disterded but soft looks well plan to start regular food in AM Time Spent With Patient Time: Total time managing care of this patient today ____ minutes.
[2023-07-05 15:24] VITALS: BP 121/58; PULSE 52; RESP 18; TEMP 36.1; O2SAT 97
[2023-07-05 19:29] VITALS: BP 130/69; PULSE 74; RESP 18; TEMP 36; O2SAT 94
[2023-07-05 23:21] VITALS: BP 149/70; PULSE 84; RESP 18; TEMP 36.1; O2SAT 95
[2023-07-06] MEDS: Lactated Ringers 1,000 ML 100 ML IVCONT ×2 (00:41→10:23)
[2023-07-06 03:20] VITALS: BP 138/71; PULSE 56; RESP 18; TEMP 36.5; O2SAT 95
[2023-07-06] MEDS: Pantoprazole Sodium 40 MG/10 ML VIAL IVPUSH (05:50)
--- NOTE | 2023-07-06 07:31 | P.PNGS_ITS ---
Subjective Subjective Date of Service: 07/06/23 Interval history: feels well passing flatus tolerating full liquids Physical Exam 2 Vital Signs: Vital Signs: Last Vital Signs Temp 97.7 F 07/06/23 03:20 Pulse 56 07/06/23 03:20 Resp 18 07/06/23 03:20 BP 138/71 07/06/23 03:20 Pulse Ox 95 07/06/23 03:20 O2 Del Method Room Air 07/06/23 03:20 O2 Flow Rate 2 07/02/23 07:23 BMI result Body Mass Index 31.0 Const: General: comfortable and no acute distress Resp: Effort & Inspection: normal respiratory effort Cardio: Rate: regular rate GI: Other: some distension, incision clean, dry Palpation (GI): Soft to palpation, not firm and no guarding Objective Data Active Medications Acetaminophen (Acetaminophen 325 Mg Tablet) 650 mg PO Q6H PRN PRN Reason: fever, pain Last Admin: 07/05/23 18:08 Dose: 650 mg Documented By: TENA Enoxaparin Sodium (Enoxaparin Sodium 40 Mg/0.4 Ml Syringe) 40 mg SUBCUT Q24H [facility] Last Admin: 07/05/23 10:50 Dose: 40 mg Documented By: TENA Lactated Ringer's (Lr) 1,000 mls @ 100 mls/hr IVCONT .Q10H [facility] Last Admin: 07/06/23 00:41 Dose: 100 mls/hr Documented By: ABDULLAHI Promethazine HCl 12.5 mg/ (Sodium Chloride) 50.5 mls @ 202 mls/hr IV Q6H PRN PRN Reason: Nausea Last Infusion: 07/04/23 23:00 Dose: Infused Documented By: DESMOND Morphine Sulfate (Morphine Sulfate 4 Mg/Ml Cartridge) 4 mg IVPUSH Q3H PRN; Protocol PRN Reason: Pain, Severe (Pain Scale 7-10) Last Admin: 07/02/23 13:23 Dose: 4 mg Documented By: TRUNG Ondansetron HCl (Ondansetron Hcl 4 Mg/2 Ml Vial) 4 mg IVPUSH Q8H PRN PRN Reason: Nausea and Vomiting Last Admin: 07/05/23 08:29 Dose: 4 mg Documented By: TENA Pantoprazole Sodium (Pantoprazole Sodium 40 Mg/10 Ml Vial) 40 mg IVPUSH DAILY@0630 [facility] Last Admin: 07/06/23 05:50 Dose: 40 mg Documented By: ABDULLAHI Sodium Chloride (0.9 % Sodium Chloride Flush 3 Ml Syringe) 3 ml IVFLUSH QSHIFT [facility] Last Admin: 07/06/23 07:00 Dose: Not Given Documented By: TENA Non-Admin Reason: IV Running Labs 07/02/23 05:27 07/04/23 05:47 Procedures Date of Service Date of Service: 07/06/23 Progress Note: A&P Assessment and plan (1) Small bowel obstruction: Status: Acute Assessment and Plan: s/p laparotomy, excision of omentum doing well looks comfortable passing flatus had BMs try regular diet possible dc home once tolerating diet Time Spent With Patient Time: Total time managing care of this patient today ____ minutes. Quality Stroke Does the patient have a stroke diagnosis?: No VTE Prior VTE?: No VTE Risk Level:: Surgical - moderate VTE Device Contraindication: N/A - Device Ordered VTE Drug Contraindication: N/A - Med Ordered
[2023-07-06 08:00] VITALS: BP 142/73; PULSE 85; RESP 18; TEMP 36.3; O2SAT 97
[2023-07-06] MEDS: Enoxaparin Sodium 40 MG/0.4 ML SYRINGE SUBCUT (10:23)
--- NOTE | 2023-07-06 12:40 | MHC.CM.PN ---
EMR REVIEWED. PT WILL BE EVALUATED FOR ABILITY TO TOLERATE DIET TODAY. CM WILL CONTINUE TO FOLLOW FOR ANY CHANGE IN DC PLAN/NEEDS.
--- NOTE | 2023-07-06 13:52 | PM.EVENT ---
Event Note Date of Service: 07/06/23 Event Note: feels well tolerating diet no nausea or vomitting ambulating well abd soft looks well ok to dc home will see in office Time Spent With Patient Time: Total time managing care of this patient today ____ minutes.
--- NOTE | 2023-07-06 14:13 | MHC.CM.PN ---
DP: PT HAS BEEN MEDICALLY CLEARED FOR DC HOME, NO SERVICES. [facility] WILL TRANSPORT. IMM DELIVERED
--- NOTE | 2023-07-09 13:21 | PM.DS ---
DS: Providers Provider Date of Service: 07/06/23 Date of admission: 07/01/23 07:08 Date of discharge: 07/06/23 Primary care physician: Jalen Beavers MD Attending physician on admission: Alma Abarca Consults: 07/01/23 07:13 Consult to Hospitalist Stat Comment: Consulting Provider: Hospitalist Reason For Exam: preop clearance Attending physician on discharge: Omid Henry DS: Diagnosis Discharge Diagnosis (1) Small bowel obstruction: Status: Resolved DS: Summary Hospital Course Hospital Course: HPI AT ADMISSION: Keon Hernandez is a 83 year old male who has been noting the last few days abdominal bloating and distension and then abdominal pain. He came in to the ER yesterday and was noted to have partial small bowel obstruction by CT and then started to feel better and passing gas. He was told to fu with General Surgery and dc home. He then went on to feel worse and abdomen bloated and colicky pain and came back in and repeat CT scan shows worsening distension and a thickened segment of small bowel. Patient was without improvement and therefore it was recommended to proceed with exploratory laparotomy and possible small bowel resection. Arrangements were made. HOSPITAL COURSE: On 07/01/23, exploratory laparotomy with detorsion omental constricting band and partial omentectomy was performed by Dr. Abarca without complication. The patient tolerated the procedure well and was admitted postoperatively. He had a slow but uncomplicated recovery course. He had delayed recovery of GI function and had persistent abdominal distention and nausea for a few days post operatively. He was ambulated and his activity was increased. He began to pass flatus and then loose stools. His nausea and abdominal distention improved. He was advanced to clear liquids, then full liquids and solid diet as tolerated. On the day of discharge, he had minimal incisional pain. He was tolerating a solid diet without nausea or vomiting and had good GI function. His abdomen was benign with appropriate post op tenderness and clean incision. He was discharged to home on 07/06/23 in stable condition. He is to follow up in the office in 2 weeks. Status at Discharge Functional status at discharge: independent ambulation Overall status at discharge: patient is progressing back to baseline Time Attestation Discharge Coordination Time (in mins): 35 Quality: Safe Use of Opioids Does Pt have an Active Cancer Diagnosis on the Problem List?: No Quality: Stroke Does the patient have a stroke diagnosis?: No Physical Exam Vital Signs: Vital Signs: Last Vital Signs Temp 97.4 F 07/06/23 08:00 Pulse 85 07/06/23 08:00 Resp 18 07/06/23 08:00 BP 142/73 H 07/06/23 08:00 Pulse Ox 97 07/06/23 08:00 O2 Del Method Room Air 07/06/23 08:00 O2 Flow Rate 2 07/02/23 07:23 BMI result Body Mass Index 31.0 Const: General: comfortable, no acute distress and alert Resp: Effort & Inspection: normal respiratory effort GI: Inspection: Yes distended (mild) and Yes incision (clean) Palpation (GI): Soft to palpation, nontender (mild incisional) and no guarding Skin: General skin exam: no rashes or lesions noted Discharge Plan Discharge Anticipated Discharge Date/Time: 07/06/23 13:53 Patient Disposition: Home, Self-Care Discharge Diagnosis: SBO Referrals: Jalen Beavers MD [Primary Care Provider] - 1 Week Omid Henry MD [Physician] - 2 Weeks Discharge Medications: New oxycodone-acetaminophen [Percocet] 5-325 mg tablet 1 tab PO Q4-6H PRN (Reason: pain) Qty: 20 0RF Rx Instructions: Partial Fill upon patient request. Continued pantoprazole 40 mg tablet,delayed release (DR/EC) 40 mg PO BID Discharge Orders: Discharge Order (Routine); Ordered 07/06/23 Ordered By: Omid Henry Diet: Advance to usual diet Activity on Discharge: No heavy lifting Stand Alone Forms: Patient Portal Discharge page Print Language: Malagasy Activity Restrictions/Additional Instructions: If the incision area is tender, you may apply an ice pack for short intervals (No more than 20 minutes on, followed by at least 20 minutes off). Do not apply heat. Do not use creams, lotions, or topical antibiotics. These can cause infection or allergic reaction. Ok to shower. You have michelel closing your incision and these will be removed approximately 10-14 days after surgery. NO HEAVY LIFTING (>10lbs) or strenuous activity. Follow up in office with Dr. Henry in 2 weeks. ([phone]) Call Your Doctor If: -Your temperature exceeds 101.5? F -You experience excessive pain or swelling -You have an unexpected reaction to medication -You have excessive bleeding -You experience continued vomiting/nausea -Your incision begins to separate -Your incision shows signs of infection such as increased redness, swelling, excessive pain, drainage (light blood or clear fluid is normal) or heat Care Plan Goals: Return to baseline health and resume normal activities following recovery period. Health Concerns: postop course Plan of Treatment: oral pain meds Assessment: doing well Patient Instructions: Bowel Obstruction (GEN) Discharge Date/Time: 07/06/23 14:28
== END 2023-07-06 14:28 | disposition home or self-care (01) | DRG 337 ==
LOC: HO.ED 06:46 → HO.EDOVER 07:19 → HO.S3 11:42
PROVIDERS: Internal Medicine; Physician Assistant Surgical; Admitting Provider Surgery; Emergency Provider Emergency Medicine; PCP Family Medicine; Visit Provider Surgery
PROC: 0DN80ZZ Release Small Intestine, Open Approach (ICD-10-PCS; CPT 49000; principal; 2023-07-01 17:00)
DX: K56.50 Intestinal adhesions [bands], unspecified as to partial versus complete obstruction (principal); K22.70 Barrett's esophagus without dysplasia; R73.03 Prediabetes; Z79.899 Other long term (current) drug therapy
CPT/HCPCS: 36415; 74177; 80048; 80076; 82947; 83690; 83735; 85025; 85027; 93005; 99285; C9113; J0131; J0690; J1100; J1650; J2270; J2405; J2550; J2704; J2795; J3010; J7120; Q9967

== ENCOUNTER → 2023-07-01 04:28 | Outpatient (BNV) | payer BC, SELFPAY | PROVIDERS: Admitting Provider Surgery; Emergency Provider Emergency Medicine; PCP Family Medicine; Visit Provider Internal Medicine Cardiovascular Disease | DX: I44.0 Atrioventricular block, first degree (principal) | CPT/HCPCS: 93010 ==

== ENCOUNTER → 2023-07-01 07:08 | Outpatient (BNV) | payer BC, SELFPAY | PROVIDERS: Admitting Provider Surgery; Emergency Provider Emergency Medicine; PCP Family Medicine; Visit Provider Internal Medicine | DX: K56.609 Unspecified intestinal obstruction, unspecified as to partial versus complete obstruction (principal) | CPT/HCPCS: 99222; 99232 ==

== ENCOUNTER → 2023-07-01 07:08 | Outpatient (BNV) | payer BC, SELFPAY | PROVIDERS: Admitting Provider Surgery; Emergency Provider Emergency Medicine; PCP Family Medicine; Visit Provider Surgery | DX: K56.609 Unspecified intestinal obstruction, unspecified as to partial versus complete obstruction (principal) | CPT/HCPCS: 49255; 99024; 99223; 99499 ==

== ENCOUNTER 2023-07-19 09:07 | Outpatient (AMB) | payer BC, SELFPAY ==
--- NOTE | 2023-07-19 09:10 | MHC.OFFVIS ---
Intake Intake Visit Reasons: s/p exploratory lap, [facility] D/C Intake Note: This patient presents for a post-op assessment s/p exploratory laparotomy with detorsion omental constricting band and partial omentectomy. *SM pt Pt c/o; reports no complaints. Medical Doctor Required: No Accompanied by: Self / Same As Patient Allergies No Known Allergies Allergy (Verified 07/19/23 09:13) HPI s/p exploratory lap, [facility] D/C HPI Details 83-year-old male here for a postop visit. He had undergone laparotomy, with detorsion of a segment of small bowel for obstruction with Dr. Abarca last 07/01/2023. He tolerated the procedure well. He was discharged on postop day 5. He has good oral intake. He has good bowel movements. He denies significant complaints at this time and feels well overall. [facility] Medical History (Updated 07/19/23 @ 09:33 by Omid Henry MD) Status post abdominal surgery, follow-up exam Pre-diabetes GERD (gastroesophageal reflux disease) Surgical History Hx of surgical procedure (~07/06/23) Social History Household Members: Spouse Housing: House Do you presently have visiting nurse or other home services: No Alcohol intake: current Alcohol intake frequency: a few times a week Alcohol type: beer and hard liquor Patient Tobacco Use Status: Never used Tobacco service: No Review of Systems Const Denies chills and Denies fever(s) Card Denies chest pain, Denies dyspnea and Denies dyspnea on exertion Resp Denies cough, Denies dyspnea and Denies dyspnea on exertion GI Denies hematochezia and Denies change in bowel habits Denies hematuria and Denies difficulty urinating Musc Denies back pain and Denies limited range of motion Neuro Denies focal weakness and Denies convulsions Psych Denies depression and Denies mood swings Physical Exam Const General: comfortable and no acute distress GI Other: Incision clean and dry, michelle intact, incision well healed Palpation (GI): Soft to palpation, not firm, nontender and no guarding Assessment & Plan Assessment & Plan (1) Status post abdominal surgery, follow-up exam: Code(s): Z09 - Encounter for follow-up examination after completed treatment for conditions other than malignant neoplasm Plan: He is doing well after laparotomy and detorsion small bowel with an omental constricting band by Dr. Abarca. He has good GI function. He looks well. I removed all his skin michelle He can follow up on a p.r.n. basis. He is avoid lifting anything more than 20 lb for at least 3 more weeks. Coding Level of Care Code Global (50285) Diagnoses Status post abdominal surgery, follow-up exam Z09
== END 2023-07-19 09:36 | disposition home or self-care (01) ==
PROVIDERS: PCP Family Medicine; Visit Provider Surgery
DX: Z09 Encounter for follow-up examination after completed treatment for conditions other than malignant neoplasm (principal)
CPT/HCPCS: 99024

== ENCOUNTER → 2023-07-19 09:07 | Outpatient (BNVA) | payer BC, SELFPAY | PROVIDERS: PCP Family Medicine; Visit Provider Surgery ==

== ENCOUNTER → 2024-10-27 04:54 | Outpatient (BNV) | payer BC, SELFPAY | PROVIDERS: PCP Family Medicine; Visit Provider Radiology Vascular & Interventional Radiology | DX: M79.661 Pain in right lower leg (principal); M16.11 Unilateral primary osteoarthritis, right hip | CPT/HCPCS: 73502; 73560; 93971 ==

== ENCOUNTER 2024-10-27 05:26 | Emergency (ER) | payer BC, SELFPAY ==
--- NOTE | ~2024-10-27 | US_ITS ---
EXAMINATION: US TRIPLEX LOWER EXTREMITY, RIGHT CLINICAL INFORMATION: Pain, right lower extremity COMPARISON: None available. TECHNIQUE: Color-flow triplex imaging with spectral analysis and compression Doppler were performed on the right lower extremity. FINDINGS: Respiratory variation, normal compression and augmented flow demonstrated throughout the interrogated right common femoral vein, superficial femoral vein, profunda femoral vein, popliteal vein and midcalf peroneal and posterior tibial venous segments . There is a 3.1 cm lobulated anechoic abnormality in the popliteal fossa without flow on color Doppler interrogation US/US venous duplex LE RT IMPRESSION: No acute deep venous thrombosis interrogated veins, right lower extremity. Negative for DVT. 3.1 cm popliteal cyst.. Electronically signed by: Larry Grissom MD 10/27/2024 08:00 AM EDT
--- NOTE | ~2024-10-27 | XR_ITS ---
CLINICAL HISTORY: fall 3 view, pelvis and right hip Comparison: None provided Findings: No acute fracture or dislocation. Moderate degenerative change at both hips. The soft tissues are unremarkable. IMPRESSION: No acute findings. 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 This document has been electronically signed by: Han Miller MD on 10/27/2024 06:52:41
--- NOTE | ~2024-10-27 | XR_ITS ---
CLINICAL HISTORY: fall 3 view right knee Comparison: None provided Findings: No fractures or dislocations. Moderate tricompartmental degenerative change. Chondrocalcinosis present. No joint effusion. No radiopaque foreign body. IMPRESSION: No fracture or malalignment. Chronic changes. This document has been electronically signed by: Han Miller MD on 10/27/2024 06:53:48
[2024-10-27 05:34] VITALS: BP 185/95; PULSE 70; PULSE 72; RESP 18; TEMP 36.5; O2SAT 94; O2SAT 96; BMI 29.0
[2024-10-27 05:37] VITALS: BP 188/84; PULSE 70; RESP 18; TEMP 36.5; O2SAT 96
--- NOTE | 2024-10-27 07:25 | ED.GENADULT ---
HPI - General Adult General Chief complaint: Fall Stated complaint: R leg pain after twisting motion Time Seen by Provider: 10/27/24 07:05 Source: patient Mode of arrival: ambulatory Limitations: no limitations History of Present Illness ED Provider: DR. Rivero HPI narrative: 84-year-old male came in for evaluation of right lower extremity pain started since Sunday patient with widening while he was fixing his pins at home then lost balance and fell backward causing his right thigh to sprain he has been having pain and difficulty ambulating, no recent travel, no swelling, no redness, no fever, no chills, no deformity, no history of DVT, no SOB, no CP. Related Data Home Medications ?Medication ?Instructions ?Recorded ?Confirmed pantoprazole 40 mg tablet,delayed 40 mg PO BID 07/01/23 07/01/23 release Previous Rx's ?Medication ?Instructions ?Recorded oxycodone-acetaminophen 5 mg-325 1 tab PO Q4-6H PRN pain #20 tabs 07/06/23 mg tablet (Percocet) cyclobenzaprine 10 mg tablet 10 mg PO TID PRN muscle spasm #10 10/27/24 tabs oxycodone-acetaminophen 5 mg-325 1 tab PO Q8H PRN pain #7 tabs 10/27/24 mg tablet (Percocet) Allergies Allergy/AdvReac Type Severity Reaction Status Date / Time No Known Allergies Allergy Verified 10/27/24 05:36 Review of Systems Review of Systems: All other systems are reviewed and are negative Constitutional: Reports as per HPI and Reports no additional constitutional complaints Eyes: Reports as per HPI and Reports no additional eye complaints Reports system reviewed and no additional complaints, except as documented Cardiovascular: Reports as per HPI and Reports no additional cardiovascular complaints Respiratory: Reports as per HPI and Reports no additional respiratory complaints Gastrointestinal: Reports as per HPI and Reports no additional gastrointestinal complaints Genitourinary: Reports no additional female genitourinary complaints Musculoskeletal: Reports no additional musculoskeletal complaints Skin/Breast: Reports system reviewed and no additional complaints, except as docu Psychiatric: Reports no additional psychiatric complaints Endocrine: Reports no additional endocrine complaints Hematologic/Lymphatic: Reports no additional hematologic/lymphatic complaints Allergic/Immunologic: Reports no additional allergic/immunologic complaints Reports system reviewed and no additional complaints, except as documented and Reports Abnormal speech present [facility] Past Medical History Medical History Status post abdominal surgery, follow-up exam Pre-diabetes GERD (gastroesophageal reflux disease) Surgical History Hx of surgical procedure (~07/06/23) Social History Social History Household Members: Spouse Housing: House Do you presently have visiting nurse or other home services: No Alcohol intake: current Alcohol intake frequency: a few times a week Alcohol type: beer and wine Patient Tobacco Use Status: Never used Tobacco Smoked in Last 30 Days: No Use of substances other than those prescribed or required for medical reasons: No Advance Directives: No Advance Directives Information Provided: No service: No Physical Exam ED Vital Signs: Vital Signs - 24 hr 10/27/24 05:34 10/27/24 05:37 Temperature 97.7 F 97.7 F Pulse Rate 70 70 Respiratory Rate 18 18 Blood Pressure 188/84 H Pulse Oximetry 96 96 Oxygen Delivery Method Room Air Room Air BMI result Body Mass Index 29.0 Vital signs have been reviewed and appear to be correct. Blood pressure elevated. Heart rate normal. Respiratory rate normal. Temperature normal. Oxygen saturation normal. Appearance: Alert. Oriented X3. No acute distress. Head: Normal external exam. Normocephalic. Atraumatic. No Gross signs noted. No raccoon eyes noted Eyes: PERRLA. EOMI. Conjunctiva and sclera normal. Eyelids normal. ENT: TM's Normal. Pharynx normal. Uvula midline. Moist mucous membranes. No trismus noted. No drooling noted. No muffled voice noted. Neck: Normal inspection. Neck supple. FROM. No adenopathy. Thyroid Normal. No meningeal signs. No neck mass noted. CVS: Normal heart rate and rhythm. Heart sound normal. No murmurs noted. Pulses normal throughout. Respiratory: No respiratory distress. Painless inspiration. Breath sounds normal. No wheezes/rales/rhonchi noted. Chest nontender. No accessory muscle usage noted or decreased air movement noted. Abdomen: Soft and nontender. Bowel sounds normal in all 4 quadrants. No distention noted. No organomegaly noted. No visible injury noted. Back: No CVA tenderness. Full range of motion noted. Skin: Skin warm and dry. Normal skin color. Normal skin turgor. No rashes/lesions/lacerations noted. Extremities: Right lower extremity: No deformity, no point of tenderness, no swelling, no redness, neurovascularly intact, tenderness is in the right knee and right thigh. Neuro: Oriented X 3. Cranial nerve exam: II-XII are grossly intact No motor deficit. No sensory deficit. Reflexes normal. Course Reevaluation(s) Reevaluation #1: right lower extremity myofascial pain likely pulled muscle in the thigh, negative x-ray of the hip and knee, negative ultrasound for DVT. Patient felt better after 1 dose of oxycodone, patient was instructed to take ibuprofen, will prescribe 7 pills of Percocet and muscle relaxant if needed for pain. Time: 08:38 Medical Decision Making Differential Diagnosis Differential Diagnoses: The differential diagnosis associated with the presentation includes ( Right lower extremity DVT, right knee fracture, right hip fracture, myofascial pulled muscle of the right thigh.) Admission/Observation Consideration of admission/observation: Escalation of care including admission/observation considered Lab Data MDM Lab Attestation statement: I reviewed the patient's lab results. 10/27/24 07:58 10/27/24 07:58 Labs: Lab Results 10/27/24 Range/Units 07:58 WBC 6.9 (4.8-10.8) X10*3/uL RBC 4.90 (4.60-5.80) X10*6/uL Hgb 15.1 (14.0-18.0) g/dl Hct 44.1 (42.0-52.0) % MCV 90.0 (80.0-98.0) fL MCH 30.8 (27.0-33.0) pg MCHC 34.2 (31.0-36.0) g/dl RDW 12.5 (11.0-16.0) % Plt Count 257 (160-400) X10*3/uL MPV 9.4 (9.4-12.4) fL Immature Gran % (Auto) 0.6 H (0.0-0.4) % Neut % (Auto) 70.8 (45-73) % Lymph % (Auto) 20.3 (20-40) % [place] % (Auto) 6.1 (2-11) % Eos % (Auto) 1.6 (0-4) % Baso % (Auto) 0.6 (0-2) % Lymph # (Auto) 1.4 (1.2-4.9) X10*3/uL [place] # (Auto) 0.4 (0.1-1.2) X10*3/uL Eos # (Auto) 0.1 (0.0-0.4) X10*3/uL Baso # (Auto) 0.0 (0.0-0.2) X10*3/uL Abs Immat Gran (auto) 0.04 H (0.00-0.03) X10*3/uL Absolute Neuts (auto) 4.9 (2.0-8.3) x10*3/uL Absolute Nucleated RBC 0.000 (0.0-0.012) X10*3/uL Nucleated RBC % (auto) 0.0 (0.0-0.2) /100WBC Sodium 142 (135-145) mmol/L Potassium 4.4 (3.3-5.1) mmol/L Chloride 107 (96-108) mmol/L Carbon Dioxide 26 (22-29) mmol/L Anion Gap 13 (12-20) BUN 13 (9-16) mg/dL Creatinine 0.90 (0.5-1.4) mg/dL Estim Creat Clear Calc 61.3 Estimated GFR > 60 Random Glucose 114 (60-115) mg/dL Calcium 9.4 D (8.4-10.2) mg/dL Total Creatine Kinase 76 (38-174) U/L C-Reactive Protein < 0.10 (< or = 0.50) mg/dL Independent Interpretation I performed an independent interpretation of an: Plain X-Ray ( Right knee/ right hip: No acute pathology.) and Ultrasound ( Right lower extremity:No acute deep venous thrombosis interrogated veins, right lower extremity. Negative for DVT. 3.1 cm popliteal cyst.. ) Radiology Impression Discussion of test interpretation with radiology: I have reviewed the radiologist's reading. Discharge Plan Discharge Clinical Impression: Pulled muscle Patient Disposition: Home, Self-Care Prescriptions: New oxycodone-acetaminophen [Percocet] 5-325 mg tablet 1 tab PO Q8H PRN (Reason: pain) Qty: 7 0RF Rx Instructions: Partial Fill upon patient request. cyclobenzaprine 10 mg tablet 10 mg PO TID PRN (Reason: muscle spasm) Qty: 10 0RF No Action pantoprazole 40 mg tablet,delayed release (DR/EC) 40 mg PO BID oxycodone-acetaminophen [Percocet] 5-325 mg tablet 1 tab PO Q4-6H PRN (Reason: pain) Qty: 20 0RF Rx Instructions: Partial Fill upon patient request. Referrals: Jalen Beavers MD [Primary Care Provider, Internal Medicine] Print Language: Gambian
[2024-10-27 08:03] LABS: MANUAL DIFF FLAG NO
[2024-10-27 08:05] LABS: Hematocrit 44.1 % (42.0-52.0); Hemoglobin 15.1 g/dl (14.0-18.0); Imm Gran Abs Auto 0.04 X10*3/uL (0.00-0.03); Imm Gran Pct Auto 0.6 % (0.0-0.4); Lymphocytes Absolute Auto 1.4 X10*3/uL (1.2-4.9); Mean Corpuscular HGB Conc 34.2 g/dl (31.0-36.0); Mean Corpuscular Hemoglobin 30.8 pg (27.0-33.0); Mean Corpuscular Volume 90.0 fL (80.0-98.0); NRBC Abs Auto 0.000 X10*3/uL (0.0-0.012); NRBC Pct Auto 0.0 /100WBC (0.0-0.2); Platelet Count 257 X10*3/uL (160-400); Red Blood Count 4.90 X10*6/uL (4.60-5.80); White Blood Count 6.9 X10*3/uL (4.8-10.8)
[2024-10-27 08:34] LABS: Anion Gap 13 (12-20); Blood Urea Nitrogen 13 mg/dL (9-16); Calcium 9.4 mg/dL (8.4-10.2); Carbon Dioxide 26 mmol/L (22-29); Chloride 107 mmol/L (96-108); Creatinine Clr Calc Pharmacy 61.3; Estimated Glomerular Filt Rate > 60; Potassium 4.4 mmol/L (3.3-5.1); Sodium 142 mmol/L (135-145)
[2024-10-27] MEDS: oxyCODONE HCl Immed Release 5 MG TABLET PO (08:51)
[2024-10-27 08:52] VITALS: BP 158/53; PULSE 58; RESP 19; O2SAT 98
--- NOTE | 2024-10-27 09:46 | PC.NURSE ---
MD TO BEDSIDE TO DISCUSS AMBULATION OPTIONS, PT STATES THAT HE HAS FALLEN USING A CANE, WILL ATTEMPT TO GET A WALKER FOR DISCHARGE
[2024-10-27 10:29] VITALS: BP 158/53; PULSE 58; RESP 19; TEMP 36.6; O2SAT 98
== END 2024-10-27 10:31 | disposition home or self-care (01) ==
PROVIDERS: Emergency Provider Emergency Medicine; PCP Family Medicine
DX: M79.18 Myalgia, other site (principal); M79.661 Pain in right lower leg
CPT/HCPCS: 36415; 73502; 73560; 80048; 82550; 85025; 85652; 86140; 93971; 99284